=== PATIENT | male | born 1935 | race Caucasian/White ===

== ENCOUNTER 2017-07-05 17:02 | Inpatient (IN) ==
[2017-07-05] MEDS ORDERED: ACETAMINOPHEN 325 MG TABLET PO PRN (17:44)
[2017-07-05] MEDS ORDERED: ONDANSETRON 4 MG/2 ML VIAL IV PRN (17:44)
[2017-07-05] MEDS ORDERED: DOCUSATE SODIUM 100 MG CAPSULE PO PRN (17:44)
[2017-07-05] MEDS ORDERED: SODIUM CHLORIDE 0.9% 1,000 ML IV SCH (18:00)
--- NOTE | 2017-07-05 18:20 | EKG Report ---
Stationary ECG Study [facility] Test Date: 07/05/2017 6:17:49 PM Pat Name: EN DEL ROSARIO Department: Room: 423 Gender: M Literary Writer: : 1935 Requested by: Paramjit Lee Order Number: [id number] Reading MD: MIKE GONZALEZ Intervals [place] Rate: 80 P: 80 WV: 202 QRS: -8 QRSD: 110 T: 46 QT: 385 QTc: 420 Interpretive Statements SINUS RHYTHM WITH OCCASIONAL VENTRICULAR PREMATURE COMPLEXES Sinus arrhythmia Electronically Signed On 07-05-17 18:38:36 CDT by MIKE GONZALEZ [email or web address]
[2017-07-05 18:21] LABS: Basophils # 0.1 10*3/uL (0.0-0.2); Basophils % 0.8 % (0.0-0.8); Eosinophils # 0.3 10*3/uL (0.0-0.87); Eosinophils % 4.6 % (0.00-10.9); Hematocrit 36.2 VOL% (42.0-52.0); Hemoglobin 13.2 GM/DL (14.0-18.0); Immature Granulocytes % 0.3 %; Immature Granulocytes Absolute 0.02 #; Lymphocytes # 1.7 10*3/uL (1.4-4.0); Lymphocytes % 25.6 % (21.2-54.2); Mean Corpuscular HGB Conc 36.5 GM/DL (32-36); Mean Corpuscular Hemoglobin 33 PG (27-34); Mean Corpuscular Volume 89.4 FL (87-102); Mean Platelet Volume 9.9 FL (9.6-12.0); Monocytes # 0.5 10*3/uL (0.11-0.8); Monocytes % 7.9 % (1.7-12.7); Neutrophils # 3.9 10*3/uL (1.4-7.4); Neutrophils % 60.8 % (38.7-73.9); Platelet Count 162 T/CUMM (130-400); Red Blood Count 4.05 MC/CUMM (3.8-5.5); Red Cell Distribution Width 13.7 % (9.3-17.3); White Blood Count 6.5 T/CUMM (4-12)
[2017-07-05 18:39] LABS: Albumin 4.1 G/DL (3.4-5.0); Bilirubin,Total 0.7 MG/DL (0.2-1.0); Calcium 9.3 MG/DL (8.5-10.1); Magnesium 2.1 MG/DL (1.8-2.4); Osmolality,Calculated 283.1 MOS/KG (273-304); Potassium 3.6 MMOL/L (3.5-5.1); Total Protein 7.1 G/DL (6.4-8.3)
[2017-07-05] MEDS: ASPIRIN 325 MG TABLET PO SCH (19:46)
[2017-07-05] MEDS ORDERED: PYRIDOXINE PO PRN (20:24)
[2017-07-05] MEDS ORDERED: MELATONIN PO PRN (20:24)
--- NOTE | 2017-07-05 20:32 | Family Practice History&Phys ---
Assessment and Plan (1) Lacunar infarct, acute Status: Acute Assessment and plan: 07/05/2017 this seems to be at least subacute. He has had this issue for approximately a week and 1/2-2. We will watch him tonight and if all goes well let him go home tomorrow with close follow-up Current Visit: Yes (2) Stumbling gait Status: Acute Assessment and plan: 07/05/2017: We will recommend patient get a 4 point cane walker. And to not turn quickly. I have already talked with him about this. Current Visit: Yes History of Present Illness Chief complaint: Staggering gait History of present illness: Mr. Travis is a 82 year old male Who was evaluated by MRI due to staggering gait and leaning to the right. Apparently is been going on for at least a week and a half. At the MRI it was noted he had a lacunar infarct which was acute in deep white matter. At this time he is able to walk and does go straight except when he turns around he leans and bumps into the wall. He denies any other real problems such as vision issues or any difficulty in the holding items and denies any numbness at this time. Is very alert and oriented and he is still working building houses. At this time I am going to admit him, increase his aspirin to full aspirin daily and go ahead and get an echocardiogram and carotid duplex, will get neurologic checks tonight.. He does wish to go home in the morning once these are done. If he has unchanged, I would suspect this is more of a subacute infarct. We will have him follow-up with his primary doctor this coming Saturday. His is in the room and she does care for him and he her mutually. Home Medications Medication Instructions Recorded Confirmed Type Gabapentin 600 mg PO BID 04/25/15 07/05/17 History Aspirin [Ecotrin] 81 mg PO DAILY 05/03/16 07/05/17 History Carbidopa/Levodopa 25 - 100 mg PO DAILY PRN 05/03/16 07/05/17 History [Carbidopa-Levodopa 25-100 Tab] Melatonin/Pyridoxine [Melatonin 5 10 mg PO BEDTIME PRN 05/03/16 07/05/17 History mg Tablet] dilTIAZem HCl [Diltiazem ER] 120 mg PO DAILY 05/03/16 07/05/17 History Allergies Allergy/AdvReac Type Severity Reaction Status Date / Time No Known Allergies Allergy Verified 05/02/16 20:14 12 point system: reviewed and no additional remarkable complaints except as stated (That mentioned in the history and physical) Medical,Surgical,& Family Hx - Medical History Cardio: History of: Cardiac Dysrhythmia (history of PSVT), Valvular Heart Disease (mild aortic insufficiency), Cardiovascular Problems (mild nonischemic cardiomyopathy) Neurology: History of: Cerebrovascular Accident Rheumatology: History of;: Rheumatoid Arthritis Gastrointestinal: History of: GERD, GI Problems (gastroparesis) - Surgical History Abdominal Surgeries: Surgical HX of: Appendectomy Orthopedic Surgeries: Comment Only: Orthopedic Surgery (Right ankle surgery) - Family History Family History: Reports;: Family Diabetes, Family Heart Disease - Social History Smoking Status: Former smoker Frequency of Alcohol Use: None Type of Drug Use: None Exam - Constitutional Vitals: Period Temp Pulse Resp BP Sys/Bettencourt Pulse Ox Last 24 Hr 98.5 F 77-77 18-18 157/80 97-98 Exam: Generally well developed male. He is alert and oriented and answers all questions well, and albeit somewhat slow. Denies any changes in visions and I do not appreciate any diplopia. His pupils are equally reactive to light. He has no visual cuts. HEENT neck is supple trachea midline the uvula is midline as well and cough reflex is good. Cardiovascular rate is regular. There is a 1 out of 6 systolic ejection murmur , no gallop or rub Lungs clear bilaterally except for a few basal rales Abdomen soft nondistended patient has had good bowel and bladder function. Extremities no clubbing cyanosis or edema. Positive radial and dorsalis pedal pulses bilateral upper and lower extremities. Neurologic as mentioned above. He does lean to the right when he turns but is able to catch himself quite well. I do not appreciate any cranial nerve deficits or motor sensory deficits. No cerebellar findings are appreciated at this time Results - Labs CBC & BMP: 07/05/17 18:00 07/05/17 18:00 Quality Measures - Stroke Onset of Symptoms Date: 07/05/17 Symptom Onset Unknown: No
[2017-07-05] MEDS: GABAPENTIN 600 MG TABLET PO SCH (20:45)
[2017-07-05] MEDS ORDERED: APIXABAN 5 MG TABLET PO SCH (21:00)
[2017-07-06 04:15] LABS: Basophils # 0.1 10*3/uL (0.0-0.2); Basophils % 1.2 % (0.0-0.8); Eosinophils # 0.4 10*3/uL (0.0-0.87); Eosinophils % 7.5 % (0.00-10.9); Hematocrit 34.2 VOL% (42.0-52.0); Hemoglobin 12.2 GM/DL (14.0-18.0); Immature Granulocytes % 0.4 %; Immature Granulocytes Absolute 0.02 #; Lymphocytes # 1.4 10*3/uL (1.4-4.0); Lymphocytes % 27.8 % (21.2-54.2); Mean Corpuscular HGB Conc 35.7 GM/DL (32-36); Mean Corpuscular Hemoglobin 32 PG (27-34); Mean Corpuscular Volume 89.5 FL (87-102); Mean Platelet Volume 10.1 FL (9.6-12.0); Monocytes # 0.5 10*3/uL (0.11-0.8); Monocytes % 9.1 % (1.7-12.7); Neutrophils # 2.7 10*3/uL (1.4-7.4); Platelet Count 149 T/CUMM (130-400); Red Blood Count 3.82 MC/CUMM (3.8-5.5); Red Cell Distribution Width 13.4 % (9.3-17.3)
[2017-07-06 04:48] LABS: Risk Ratio 3.27; VLDL CHOLESTEROL 28.8 MG/DL
[2017-07-06] MEDS: ASPIRIN 325 MG TABLET PO SCH (08:27)
[2017-07-06] MEDS: GABAPENTIN 600 MG TABLET PO SCH (08:27)
--- NOTE | 2017-07-06 08:44 | Family Practice Progress Note ---
Family Practice - PN: Subj Interval history: Patient seen this morning. He is doing fine no acute changes. He does want to go home today, desperately. Will discharge him after a carotid duplex and echocardiogram were done and I will have him follow with Dr. Jaeger next week. I am going to keep him on high-dose aspirin daily Exam (Progress Note) - Constitutional Vitals: Period Temp Pulse Resp BP Sys/Bettencourt Pulse Ox Last 24 Hr 98.4 F-98.7 F 67-80 17-20 148-181/72-83 95-98 Exam: He is alert and oriented and answers all questions well, Denies any changes in visions His pupils are equally reactive to light. He has no visual cuts. HEENT neck is supple trachea midline the uvula is midline as well and cough reflex is good. Cardiovascular rate is regular. There is a 1 out of 6 systolic ejection murmur , no gallop or rub Lungs clear bilaterally except for a few basal rales Abdomen soft nondistended patient has had good bowel and bladder function. Extremities no clubbing cyanosis or edema. Neurologic . do not appreciate any cranial nerve deficits or motor sensory deficits. Results - Labs CBC & BMP: 07/06/17 03:06 07/05/17 18:00 Assessment and Plan (1) Lacunar infarct, acute Status: Acute Assessment and plan: 07/05/2017 this seems to be at least subacute. He has had this issue for approximately a week and 1/2-2. We will watch him tonight and if all goes well let him go home tomorrow with close follow-up Current Visit: Yes (2) Stumbling gait Status: Acute Assessment and plan: 07/05/2017: We will recommend patient get a 4 point cane walker. And to not turn quickly. I have already talked with him about this. Current Visit: Yes Quality Measures - Stroke Onset of Symptoms Date: 07/05/17 Symptom Onset Unknown: No
[2017-07-06] MEDS ORDERED: PANTOPRAZOLE 40 MG TABLET PO SCH (09:00)
[2017-07-06] MEDS ORDERED: DILTIAZEM CD 120 MG CAPSULE PO SCH (09:00)
[2017-07-06] MEDS ORDERED: ASPIRIN EC 325 MG TABLET PO SCH (09:00)
--- NOTE | 2017-07-06 09:59 | XRay Report ---
2 view chest. Indication: Shortness of breath. Comparison: May 03, 2016. The heart size is normal. There is left ventricular hypertrophy. There is uncoiling of the thoracic aorta, which often indicates chronic hypertension. The pulmonary vasculature is normal. The lung rivas are clear. The osseous structures are diffusely demineralized, and degenerative changes are present within the spinal column. Impression: No acute abnormality. PROCEDURE INTERPRETED AT [facility] DEPARTMENT OF RADIOLOGY Final Report Signed by: Dr. Desiree Murray
[2017-07-06 12:35] VITALS: BP 181/88
--- NOTE | 2017-07-06 12:50 | Discharge Summary ---
Hospital Course - Hospital Course Hospital Course: Patient came in to the hospital after having been seen in MRI and diagnosed with a lacunar infarct. He has not had any recent symptoms from this. He has had symptoms of unstable gait for about a week and a half and I suspect this was a subacute infarct. Nonetheless he is doing well today I did get an echocardiogram as well as a carotid duplex which have been done. I am going to have him follow-up with his primary doctor early next week. He is now on a full aspirin and having, again no other symptoms, or worsening neurologic deficits. He is very much desiring to leave the hospital, for home. I told him if he had any further issues or complications to go to the ER which he voiced agreement. Also told him to use a cane to steady his gait, especially if he has a leaning to the right issue which has been his problem in the recent past. Diagnosis - Discharge Diagnosis (1) Lacunar infarct, acute Status: Acute (2) Stumbling gait Status: Acute Specialty Discharge - Follow Up or Referrals Follow up with: Marcelino Jaeger MD [Primary Care Provider] - (Saturday07/08/2017 ) Discharge Plan - Discharge Data Disposition: Disch To Home/Self Care Condition at Discharge: Stable Discharge Diet: advance to your usual diet Activity: resume usual activities as tolerated Hygiene: no restrictions Driving: not until seen by doctor - Discharge Medications New Aspirin Tab 325 mg PO DAILY tablet Pantoprazole Tab [Protonix Tab] 40 mg PO DAILY #30 tablet Continue Gabapentin 600 mg PO BID Carbidopa/Levodopa [Carbidopa-Levodopa 25-100 Tab] 25 - 100 mg PO DAILY PRN PRN Reason: Leg Cramping dilTIAZem HCl [Diltiazem ER] 120 mg PO DAILY Melatonin/Pyridoxine [Melatonin 5 mg Tablet] 10 mg PO BEDTIME PRN PRN Reason: Sleep Discontinued Aspirin [Ecotrin] 81 mg PO DAILY - Follow Up or Referral Follow Up: Marcelino Jaeger MD [Primary Care Provider] - (Saturday07/08/2017 ) - Forms/Instructions Instructions: Ischemic Stroke (DC) Exam - Constitutional Vitals: Period Temp Pulse Resp BP Sys/Bettencourt Pulse Ox Last 24 Hr 97.7 F-98.8 F 67-80 17-20 148-181/72-88 93-98 Discharge Results Procedures and tests throughout hospitalization: Pending Orders 07/06/17 carotid duplex BI Routine Labs on day of discharge: Labs from last 24 hours 07/06/17 07/06/17 07/06/17 03:06 03:06 03:06 WBC 5.0 RBC 3.82 Hgb 12.2 L Hct 34.2 L MCV 89.5 MCH 32 MCHC 35.7 RDW 13.4 Plt Count 149 MPV 10.1 Neut % (Auto) 54.0 Lymph % (Auto) 27.8 [place] % (Auto) 9.1 Eos % (Auto) 7.5 Baso % (Auto) 1.2 H Neut # (Auto) 2.7 Lymph # (Auto) 1.4 [place] # (Auto) 0.5 Eos # (Auto) 0.4 Baso # (Auto) 0.1 Immature Gran % 0.4 Nucleated RBC % 0.0 Immature Gran # 0.02 Nucleated RBCs # 0.00 Immature Plt Fraction 0.0 Sodium Potassium Chloride Carbon Dioxide Anion Gap BUN Creatinine GFR Calculation BUN/Creatinine Ratio Glucose Calculated Osmolality Calcium Magnesium Total Bilirubin AST ALT Alkaline Phosphatase B-Natriuretic Peptide 182 H Total Protein Albumin Globulin Albumin/Globulin Ratio Triglycerides 144 Cholesterol 144 LDL Cholesterol 80.0 VLDL Cholesterol 28.8 HDL Cholesterol 44 Heart Disease Risk Ratio 3.27 07/05/17 07/05/17 18:00 18:00 WBC 6.5 RBC 4.05 Hgb 13.2 L Hct 36.2 L MCV 89.4 MCH 33 MCHC 36.5 H RDW 13.7 Plt Count 162 MPV 9.9 Neut % (Auto) 60.8 Lymph % (Auto) 25.6 [place] % (Auto) 7.9 Eos % (Auto) 4.6 Baso % (Auto) 0.8 Neut # (Auto) 3.9 Lymph # (Auto) 1.7 [place] # (Auto) 0.5 Eos # (Auto) 0.3 Baso # (Auto) 0.1 Immature Gran % 0.3 Nucleated RBC % 0.0 Immature Gran # 0.02 Nucleated RBCs # 0.00 Immature Plt Fraction 0.0 Sodium 142 Potassium 3.6 Chloride 108 H Carbon Dioxide 27 Anion Gap 10.6 BUN 19 H Creatinine 1.50 H GFR Calculation 51 BUN/Creatinine Ratio 12.00 Glucose 87 Calculated Osmolality 283.1 Calcium 9.3 Magnesium 2.1 Total Bilirubin 0.70 AST 21 ALT 25 Alkaline Phosphatase 79 B-Natriuretic Peptide Total Protein 7.1 Albumin 4.1 Globulin 3.0 Albumin/Globulin Ratio 1.3 Triglycerides Cholesterol LDL Cholesterol VLDL Cholesterol HDL Cholesterol Heart Disease Risk Ratio DS: Provider Date of admission: 07/05/17 17:16 Primary care physician: Marcelino Jaeger MD Attending physician on admission: Marcelino Jaeger MD Consults: 07/05/17 17:44 Consult to Case Mgmt/Social Srvs [CONS] Routine Reason for Case Mgmt/Social Srvs: Discharge Planning 07/05/17 17:47 Consult to Physician [CONS] Routine Comment: CVA Consulting Provider: Jermaine Hernandez Discharging clinician: Paramjit Lee DO
--- NOTE | 2017-07-06 13:31 | Ultrasound Report ---
Bilateral carotid Doppler. Grayscale, color-flow, and spectral analysis performed and interpreted. Indication: Left-sided lacunar infarct. Right-sided weakness. There are mild to moderate mixed at the sclerotic changes present within the right carotid bulb and proximal internal carotid artery. The right internal carotid artery peak systolic velocity is 53 cm/s, with an IC/CC ratio of 0.6. There are moderate mixed atherosclerotic changes seen within both the proximal left internal and external carotid artery, as well as the carotid bulb and distal common carotid artery. The left internal carotid artery peak systolic velocity is 90 cm/s with an IC/CC ratio of 1.0. There is antegrade flow within each vertebral artery. Impression: Using NASCET criteria, findings consistent with less than 50% stenosis bilaterally. Irregular plaque is also seen bilaterally, worse on the left. The Ultrasound images were captured and stored. PROCEDURE INTERPRETED AT [facility] DEPARTMENT OF RADIOLOGY Final Report Signed by: Dr. Desiree Murray
--- NOTE | 2017-07-07 09:02 | ECHO Report ---
Felix Travis Exam Date: 07/06/2017 11:20 Referring Physician: Technologist: dena Mclaughlin ARDMS, RVT Age: 82 Ht (in): 69 Wt (lb): 199 Gender: M Exam Location: [facility] Echo Indications: CVA, Lunar infarct, Stumbling gait BP: 159 / 74 HR: 73 Rhythm: Sinus Technical Quality: Very technically difficult study IMPRESSIONS Normal left ventricular cavity size. Mild left ventricular hypertrophy. Left ventricular ejection fraction is estimated at 50%. The right ventricle is normal in size and function. The right atrium is normal in size. The left atrium is normal in size. Morphologically normal mitral valve. Mild-moderate mitral valve regurgitation. Aortic valve sclerosis without stenosis. Moderate to severe aortic valve regurgitation. Morphologically normal tricuspid valve. Mild tricuspid valve regurgitation. Tricuspid regurgitation velocities suggest a PAP of 41 mmHg. Morphologically normal pulmonic valve. Mild pulmonary valve regurgitation. Normal pericardium without effusion. Normal ascending aorta dimension. MEASUREMENTS (Male / Female) Normal Values 2D ECHO LV Diastolic Diameter PLAX 5.0 cm 4.2 - 5.9 / 3.9 - 5.3 cm LV Systolic Diameter PLAX 3.6 cm LV Fractional Shortening PLAX 27.0 % IVS Diastolic Thickness 1.4 cm 0.6 - 1.0 / 0.6 - 0.9 cm LVPW Diastolic Thickness 1.1 cm 0.6 - 1.0 / 0.6 - 0.9 cm RV Internal Dim ED PLAX 3.3 cm Aortic Root Diameter 4.0 cm LA Systolic Diameter LX 2.8 cm 3.0 - 4.0 / 2.7 - 3.8 cm DOPPLER TR Peak Velocity 279.0 cm/s TR Peak Gradient 31.1 mmHg FINDINGS Left Ventricle Normal left ventricular cavity size. Mild left ventricular hypertrophy. Left ventricular ejection fraction is estimated at 50%. Right Ventricle The right ventricle is normal in size and function. Right Atrium The right atrium is normal in size. Left Atrium The left atrium is normal in size. Mitral Valve Morphologically normal mitral valve. Mild-moderate mitral valve regurgitation. Aortic Valve Aortic valve sclerosis without stenosis. Moderate to severe aortic valve regurgitation. Tricuspid Valve Morphologically normal tricuspid valve. Mild tricuspid valve regurgitation. Tricuspid regurgitation velocities suggest a PAP of 41 mmHg. Pulmonic Valve Morphologically normal pulmonic valve. Mild pulmonary valve regurgitation. Pericardium Normal pericardium without effusion. Aorta Normal ascending aorta dimension. Todd Alves MD (Electronically Signed) Final Date: 07 July 2017 09:00
== END 2017-07-06 13:40 | disposition home or self-care (01) | DRG 65 ==
LOC: N.4E → OBSVTOIN 17:16
PROVIDERS: ADMIT Internal Medicine; ATTEND Internal Medicine

== ENCOUNTER 2019-08-31 11:58 | Inpatient (IN) ==
[2019-08-31] MEDS ORDERED: ACETAMINOPHEN 325 MG TABLET PO PRN (13:20)
[2019-08-31] MEDS ORDERED: ONDANSETRON 4 MG/2 ML VIAL IV PRN (13:20)
[2019-08-31] MEDS ORDERED: ALBUTEROL/IPRATROPIUM 3 ML NEB RESP TX PRN (13:26)
[2019-08-31] MEDS: ALBUTEROL/IPRATROPIUM 3 ML NEB RESP TX SCH ×3 (14:12→23:59)
[2019-08-31] MEDS: OSELTAMIVIR 75 MG CAPSULE PO SCH ×2 (14:15→20:42)
[2019-08-31] MEDS: LEVOFLOXACIN INJ 500 MG in PREMIX 1 EACH IV SCH (14:15)
[2019-08-31] MEDS: SODIUM CHLORIDE 0.9% 1,000 ML IV SCH (14:18)
[2019-08-31] MEDS ORDERED: CARBIDOPA/LEVODOPA 25-100 MG TABLET PO PRN (15:58)
[2019-08-31 19:56] LABS: Apearance,Urine CLEAR (Clear); Bilirubin,Urine Negative (Negative); Blood, Urine Negative (Negative); Glucose,Urine (UA) Negative (Negative); Hyaline Casts,Urine 3 /LPF (0-3); Ketones,Urine Negative (Negative); Mucus,Urine Occasional /LPF (Occasional); Nitrite,Urine Negative (Negative); Protein,Urine 100 MG/DL; RBC,Urine <1 /HPF (0-4); Urine Color Yellow (Yellow); Urine Urobilinogen < 2.0 EU/DL (0.2-1.0); WBC,Urine 1 /HPF (0-6)
[2019-08-31] MEDS: DOCUSATE SODIUM 100 MG CAPSULE PO SCH (20:42)
[2019-08-31] MEDS: MELATONIN 3 MG TABLET PO SCH (20:42)
[2019-08-31] MEDS: APIXABAN 5 MG TABLET PO SCH (20:43)
[2019-08-31] MEDS ORDERED: ATORVASTATIN 80 MG TABLET PO SCH (21:00)
[2019-08-31] MEDS ORDERED: BENZONATATE 100 MG CAPSULE PO PRN (21:50)
[2019-08-31] MEDS: GABAPENTIN 600 MG TABLET PO SCH (22:41)
[2019-09-01] MEDS: SODIUM CHLORIDE 0.9% 1,000 ML IV SCH ×2 (02:50→17:01)
[2019-09-01] MEDS: ALBUTEROL/IPRATROPIUM 3 ML NEB RESP TX SCH ×5 (03:53→19:13)
[2019-09-01 04:52] LABS: Basophils % 0.1 % (0.0-0.8); Hematocrit 34.4 VOL% (42.0-52.0); Hemoglobin 11.8 GM/DL (14.0-18.0); Immature Granulocytes % 0.6 %; Immature Granulocytes Absolute 0.07 #; Lymphocytes # 0.9 10*3/uL (1.4-4.0); Lymphocytes % 7.4 % (21.2-54.2); Mean Corpuscular HGB Conc 34.3 GM/DL (32-36); Mean Corpuscular Volume 92.2 FL (87-102); Mean Platelet Volume 10.8 FL (9.6-12.0); Monocytes % 6.5 % (1.7-12.7); Neutrophils % 85.4 % (38.7-73.9); Platelet Count 165 T/CUMM (130-400); Red Blood Count 3.73 MC/CUMM (3.8-5.5); Red Cell Distribution Width 13.8 % (9.3-17.3); White Blood Count 11.9 T/CUMM (4-12)
[2019-09-01 05:22] LABS: Albumin 3.2 G/DL (3.4-5.0); Calcium 8.7 MG/DL (8.5-10.1); Osmolality,Calculated 291.4 MOS/KG (273-304); Total Protein 6.6 G/DL (6.4-8.3)
[2019-09-01] MEDS: GABAPENTIN 600 MG TABLET PO SCH ×4 (09:47→20:25)
[2019-09-01] MEDS: DOCUSATE SODIUM 100 MG CAPSULE PO SCH ×2 (09:47→20:26)
[2019-09-01] MEDS: PANTOPRAZOLE 40 MG TABLET PO SCH (09:48)
[2019-09-01] MEDS: METOPROLOL SUCCINATE XL 50 MG TABLET PO SCH (09:49)
[2019-09-01] MEDS: APIXABAN 5 MG TABLET PO SCH ×2 (09:49→20:26)
[2019-09-01] MEDS: OSELTAMIVIR 75 MG CAPSULE PO SCH ×2 (09:50→20:26)
[2019-09-01] MEDS: ESCITALOPRAM 10 MG TABLET PO SCH (09:50)
[2019-09-01] MEDS: LEVOFLOXACIN INJ 500 MG in PREMIX 1 EACH IV SCH (14:29)
[2019-09-01] MEDS: MELATONIN 3 MG TABLET PO SCH (20:26)
[2019-09-02] MEDS: ALBUTEROL/IPRATROPIUM 3 ML NEB RESP TX SCH ×7 (00:14→23:33)
[2019-09-02 06:22] LABS: Basophils % 0.4 % (0.0-0.8); Eosinophils % 0.4 % (0.00-10.9); Hematocrit 33.5 VOL% (42.0-52.0); Hemoglobin 11.2 GM/DL (14.0-18.0); Immature Granulocytes Absolute 0.07 #; Lymphocytes % 13.6 % (21.2-54.2); Mean Corpuscular HGB Conc 33.4 GM/DL (32-36); Mean Corpuscular Volume 94.6 FL (87-102); Mean Platelet Volume 10.6 FL (9.6-12.0); Monocytes % 12.2 % (1.7-12.7); Neutrophils % 72.4 % (38.7-73.9); Platelet Count 143 T/CUMM (130-400); Red Blood Count 3.54 MC/CUMM (3.8-5.5); Red Cell Distribution Width 14.1 % (9.3-17.3)
[2019-09-02 06:53] LABS: Calcium 8.6 MG/DL (8.5-10.1)
[2019-09-02 07:09] LABS: Albumin 2.8 G/DL (3.4-5.0); Bilirubin,Direct 0.13 MG/DL (0.0-0.20); Bilirubin,Indirect 0.3 MG/DL (0.0-1.0); Bilirubin,Total 0.4 MG/DL (0.2-1.0); Total Protein 5.9 G/DL (6.4-8.3)
[2019-09-02] MEDS: ESCITALOPRAM 10 MG TABLET PO SCH (09:37)
[2019-09-02] MEDS: OSELTAMIVIR 75 MG CAPSULE PO SCH ×2 (09:37→21:47)
[2019-09-02] MEDS: PANTOPRAZOLE 40 MG TABLET PO SCH (09:37)
[2019-09-02] MEDS: DOCUSATE SODIUM 100 MG CAPSULE PO SCH ×2 (09:37→21:47)
[2019-09-02] MEDS: METOPROLOL SUCCINATE XL 50 MG TABLET PO SCH (09:37)
[2019-09-02] MEDS: APIXABAN 5 MG TABLET PO SCH ×2 (09:37→21:47)
[2019-09-02] MEDS: GABAPENTIN 600 MG TABLET PO SCH ×6 (09:37→21:53)
[2019-09-02] MEDS: LEVOFLOXACIN INJ 500 MG in PREMIX 1 EACH IV SCH (13:58)
[2019-09-02] MEDS: SODIUM CHLORIDE 0.9% 1,000 ML IV SCH (17:40)
[2019-09-02] MEDS ORDERED: DONEPEZIL 5 MG TABLET PO SCH (21:00)
[2019-09-02] MEDS ORDERED: DILTIAZEM CD 240 MG CAPSULE PO SCH (21:00)
[2019-09-02] MEDS ORDERED: TAMSULOSIN 0.4 MG CAPSULE PO SCH (21:00)
[2019-09-02] MEDS: MELATONIN 3 MG TABLET PO SCH (21:47)
[2019-09-02] MEDS: MEMANTINE 10 MG TABLET PO SCH (21:47)
[2019-09-03] MEDS: ALBUTEROL/IPRATROPIUM 3 ML NEB RESP TX SCH ×2 (03:16→07:11)
[2019-09-03 06:09] LABS: Basophils # 0.1 10*3/uL (0.0-0.2); Basophils % 0.7 % (0.0-0.8); Eosinophils # 0.3 10*3/uL (0.0-0.87); Eosinophils % 3.6 % (0.00-10.9); Hematocrit 32.2 VOL% (42.0-52.0); Hemoglobin 10.8 GM/DL (14.0-18.0); Immature Granulocytes % 1.6 %; Immature Granulocytes Absolute 0.11 #; Lymphocytes # 1.2 10*3/uL (1.4-4.0); Lymphocytes % 17.2 % (21.2-54.2); Mean Corpuscular HGB Conc 33.5 GM/DL (32-36); Mean Corpuscular Volume 94.2 FL (87-102); Mean Platelet Volume 10.6 FL (9.6-12.0); Monocytes % 12.7 % (1.7-12.7); Neutrophils % 64.2 % (38.7-73.9); Platelet Count 140 T/CUMM (130-400); Red Blood Count 3.42 MC/CUMM (3.8-5.5); Red Cell Distribution Width 14.3 % (9.3-17.3); White Blood Count 6.9 T/CUMM (4-12)
[2019-09-03 06:35] LABS: Calcium 8.6 MG/DL (8.5-10.1); Osmolality,Calculated 293.7 MOS/KG (273-304)
[2019-09-03] MEDS ORDERED: ASPIRIN EC 81 MG TABLET PO SCH (09:00)
[2019-09-03] MEDS: SODIUM CHLORIDE 0.9% 1,000 ML IV SCH (09:28)
[2019-09-03] MEDS: METOPROLOL SUCCINATE XL 50 MG TABLET PO SCH (09:29)
[2019-09-03] MEDS: GABAPENTIN 600 MG TABLET PO SCH ×2 (09:29)
[2019-09-03] MEDS: PANTOPRAZOLE 40 MG TABLET PO SCH (09:29)
[2019-09-03] MEDS: APIXABAN 5 MG TABLET PO SCH (09:29)
[2019-09-03] MEDS: DOCUSATE SODIUM 100 MG CAPSULE PO SCH (09:29)
[2019-09-03] MEDS: OSELTAMIVIR 75 MG CAPSULE PO SCH (09:29)
[2019-09-03] MEDS: ESCITALOPRAM 10 MG TABLET PO SCH (09:29)
[2019-09-03] MEDS: MEMANTINE 10 MG TABLET PO SCH (09:33)
[2019-09-03 10:20] VITALS: BP 136/83
== END 2019-09-03 10:59 | disposition home or self-care (01) | DRG 194 ==
LOC: N.5E 12:29
PROVIDERS: ADMIT Internal Medicine; ATTEND Internal Medicine

== ENCOUNTER 2020-08-31 16:35 | Inpatient (IN) ==
[2020-08-31] MEDS ORDERED: ACETAMINOPHEN 500 MG TABLET PO STA (16:51)
[2020-08-31 18:15] LABS: Basophils % 0.3 % (0.0-0.8); Eosinophils % 0.5 % (0.00-10.9); Hematocrit 35.3 VOL% (42.0-52.0); Hemoglobin 12.3 GM/DL (14.0-18.0); Immature Granulocytes % 0.5 %; Immature Granulocytes Absolute 0.03 #; Lymphocytes # 1.3 10*3/uL (1.4-4.0); Lymphocytes % 20.7 % (21.2-54.2); Mean Corpuscular HGB Conc 34.8 GM/DL (32-36); Mean Corpuscular Volume 93.6 FL (87-102); Mean Platelet Volume 9.8 FL (9.6-12.0); Monocytes % 18.5 % (1.7-12.7); Neutrophils % 59.5 % (38.7-73.9); Platelet Count 110 T/CUMM (130-400); Red Blood Count 3.77 MC/CUMM (3.8-5.5); Red Cell Distribution Width 13.4 % (9.3-17.3); White Blood Count 6.4 T/CUMM (4-12)
[2020-08-31 18:27] LABS: INR 1.2; PT Patient Result 12.3 SECS (9.8-11.9)
[2020-08-31 18:51] LABS: Lymphocytes 15 % (20-55); Segmented Neutrophils 65 % (50-85); Total Cells Counted 100
[2020-08-31 18:53] LABS: Albumin 3.3 G/DL (3.4-5.0); Bilirubin,Total 0.7 MG/DL (0.2-1.0); Calcium 8.7 MG/DL (8.5-10.1); Ferritin 66.6 ng/ml (26-388); Osmolality,Calculated 279.7 MOS/KG (273-304); Platelet Estimate Adequate; Potassium 3.9 MMOL/L (3.5-5.1); Total Protein 6.7 G/DL (6.4-8.3)
[2020-08-31] MEDS ORDERED: ACETAMINOPHEN 325 MG TABLET PO PRN (18:54)
[2020-08-31] MEDS ORDERED: ONDANSETRON 4 MG/2 ML VIAL IV PRN (18:54)
[2020-08-31] MEDS ORDERED: ASPIRIN CHEW 81 MG TABLET PO STA (19:14)
[2020-08-31] MEDS: AZITHROMYCIN INJ 500 MG in SODIUM CHLORIDE 0.9% 250 ML IV SCH (19:24)
[2020-08-31 19:25] LABS: Bilirubin,Urine Negative (Negative); Blood, Urine Small mg/dL (Negative); Glucose,Urine (UA) Negative (Negative); Ketones,Urine Negative (Negative); Mucus,Urine Occasional /LPF (Occasional); Nitrite,Urine Negative (Negative); Protein,Urine 30 MG/DL; RBC,Urine 2 /HPF (0-4); Squamous Epithelial Cell,Urine Occasional /HPF (0-10); Urine Appearance CLEAR (Clear); Urine Color Yellow (Yellow); Urine Specific Gravity 1.018 (1.001-1.035); Urine Urobilinogen < 2.0 EU/DL (0.2-1.0); WBC,Urine <1 /HPF (0-6)
[2020-08-31] MEDS ORDERED: APIXABAN 5 MG TABLET PO SCH (21:00)
[2020-08-31] MEDS: DILTIAZEM CD 240 MG CAPSULE PO SCH (21:10)
[2020-08-31] MEDS: DONEPEZIL 10 MG TABLET PO SCH (21:10)
[2020-08-31] MEDS: ATORVASTATIN 80 MG TABLET PO SCH (21:10)
[2020-08-31] MEDS: METOPROLOL TARTRATE 25 MG TABLET PO SCH (21:10)
[2020-09-01 04:22] LABS: Basophils % 0.4 % (0.0-0.8); Eosinophils % 0.9 % (0.00-10.9); Hematocrit 36.7 VOL% (42.0-52.0); Hemoglobin 12.5 GM/DL (14.0-18.0); Immature Granulocytes % 0.4 %; Immature Granulocytes Absolute 0.02 #; Lymphocytes # 1.5 10*3/uL (1.4-4.0); Lymphocytes % 33.2 % (21.2-54.2); Mean Corpuscular HGB Conc 34.1 GM/DL (32-36); Mean Corpuscular Volume 93.6 FL (87-102); Mean Platelet Volume 10.3 FL (9.6-12.0); Monocytes % 18.6 % (1.7-12.7); Neutrophils % 46.5 % (38.7-73.9); Platelet Count 94 T/CUMM (130-400); Red Blood Count 3.92 MC/CUMM (3.8-5.5); Red Cell Distribution Width 13.4 % (9.3-17.3); White Blood Count 4.6 T/CUMM (4-12)
[2020-09-01 04:31] LABS: Bilirubin,Total 0.9 MG/DL (0.2-1.0); Calcium 8.5 MG/DL (8.5-10.1); Osmolality,Calculated 279.5 MOS/KG (273-304); Potassium 3.9 MMOL/L (3.5-5.1); Total Protein 6.3 G/DL (6.4-8.3)
[2020-09-01 05:03] LABS: Band Neutrophils 1 % (0-10); Eosinophils 2 % (0-10); Hypochromasia 1+; Lymphocytes 31 % (20-55); Microcytosis 1+; Segmented Neutrophils 55 % (50-85); Total Cells Counted 100
[2020-09-01 05:04] LABS: Atypical Lymphocytes Few; Ovalocytes Few; Platelet Estimate Decreased
[2020-09-01] MEDS ORDERED: LORATADINE 10 MG TABLET PO PRN (08:46)
[2020-09-01] MEDS: BENZONATATE 100 MG CAPSULE PO SCH ×3 (10:37→20:49)
[2020-09-01] MEDS: PANTOPRAZOLE 40 MG VIAL IV SCH (10:37)
[2020-09-01] MEDS: ASPIRIN EC 81 MG TABLET PO SCH (10:37)
[2020-09-01] MEDS: FAMOTIDINE 20 MG TABLET PO SCH ×2 (10:37→20:49)
[2020-09-01] MEDS: APIXABAN 2.5 MG TABLET PO SCH ×2 (10:37→20:49)
[2020-09-01] MEDS: DILTIAZEM CD 240 MG CAPSULE PO SCH ×2 (10:37→20:49)
[2020-09-01] MEDS: AZITHROMYCIN INJ 500 MG in SODIUM CHLORIDE 0.9% 250 ML IV SCH (18:38)
[2020-09-01] MEDS: ATORVASTATIN 80 MG TABLET PO SCH (20:49)
[2020-09-01] MEDS: METOPROLOL TARTRATE 25 MG TABLET PO SCH (20:49)
[2020-09-01] MEDS: DONEPEZIL 10 MG TABLET PO SCH (20:49)
[2020-09-02 06:23] LABS: Basophils % 0.3 % (0.0-0.8); Eosinophils # 0.1 10*3/uL (0.0-0.87); Eosinophils % 0.8 % (0.00-10.9); Hematocrit 38.9 VOL% (42.0-52.0); Hemoglobin 13.2 GM/DL (14.0-18.0); Immature Granulocytes % 0.5 %; Immature Granulocytes Absolute 0.03 #; Lymphocytes # 1.5 10*3/uL (1.4-4.0); Lymphocytes % 23.3 % (21.2-54.2); Mean Corpuscular HGB Conc 33.9 GM/DL (32-36); Mean Corpuscular Volume 93.7 FL (87-102); Mean Platelet Volume 10.3 FL (9.6-12.0); Neutrophils % 64.1 % (38.7-73.9); Platelet Count 93 T/CUMM (130-400); Red Blood Count 4.15 MC/CUMM (3.8-5.5); Red Cell Distribution Width 13.1 % (9.3-17.3); White Blood Count 6.6 T/CUMM (4-12)
[2020-09-02 06:36] LABS: Calcium 8.5 MG/DL (8.5-10.1); Osmolality,Calculated 275.8 MOS/KG (273-304); Potassium 3.8 MMOL/L (3.5-5.1)
[2020-09-02 07:24] LABS: Anisocytosis Slight; Platelet Estimate Decreased
[2020-09-02 07:25] LABS: Ovalocytes Few
[2020-09-02] MEDS: APIXABAN 2.5 MG TABLET PO SCH ×2 (08:55→20:39)
[2020-09-02] MEDS: DILTIAZEM CD 240 MG CAPSULE PO SCH ×2 (08:55→20:38)
[2020-09-02] MEDS: ASPIRIN EC 81 MG TABLET PO SCH (08:55)
[2020-09-02] MEDS: FAMOTIDINE 20 MG TABLET PO SCH ×2 (08:56→20:39)
[2020-09-02] MEDS: MEMANTINE 10 MG TABLET PO SCH ×2 (08:56→20:38)
[2020-09-02] MEDS: BENZONATATE 100 MG CAPSULE PO SCH ×3 (08:56→20:38)
[2020-09-02] MEDS: PANTOPRAZOLE 40 MG VIAL IV SCH (08:56)
[2020-09-02] MEDS: PIPERACILLIN/TAZOBACTAM 3,375 MG in SODIUM CHLORIDE 0.9% 100 ML IV SCH ×3 (10:17→17:12)
[2020-09-02] MEDS: DONEPEZIL 10 MG TABLET PO SCH (20:37)
[2020-09-02] MEDS: ATORVASTATIN 80 MG TABLET PO SCH (20:38)
[2020-09-02] MEDS: METOPROLOL TARTRATE 25 MG TABLET PO SCH (20:38)
[2020-09-02] MEDS: TAMSULOSIN 0.4 MG CAPSULE PO SCH (20:39)
[2020-09-02] MEDS: AZITHROMYCIN INJ 500 MG in SODIUM CHLORIDE 0.9% 250 ML IV SCH (20:42)
[2020-09-03] MEDS: PIPERACILLIN/TAZOBACTAM 3,375 MG in SODIUM CHLORIDE 0.9% 100 ML IV SCH ×3 (01:40→17:00)
[2020-09-03 06:54] LABS: Calcium 8.8 MG/DL (8.5-10.1); Osmolality,Calculated 269.4 MOS/KG (273-304); Potassium 4.5 MMOL/L (3.5-5.1)
[2020-09-03 08:22] LABS: Basophils % 0.4 % (0.0-0.8); Eosinophils % 0.2 % (0.00-10.9); Hematocrit 35.8 VOL% (42.0-52.0); Hemoglobin 12.7 GM/DL (14.0-18.0); Immature Granulocytes % 0.4 %; Immature Granulocytes Absolute 0.02 #; Lymphocytes # 1.1 10*3/uL (1.4-4.0); Lymphocytes % 22.4 % (21.2-54.2); Mean Corpuscular HGB Conc 35.5 GM/DL (32-36); Mean Corpuscular Volume 91.6 FL (87-102); Mean Platelet Volume 10.9 FL (9.6-12.0); Monocytes % 11.3 % (1.7-12.7); Neutrophils % 65.3 % (38.7-73.9); Red Blood Count 3.91 MC/CUMM (3.8-5.5)
[2020-09-03 08:23] LABS: Platelet Count 89 T/CUMM (130-400)
[2020-09-03] MEDS: ASPIRIN EC 81 MG TABLET PO SCH (08:35)
[2020-09-03] MEDS: APIXABAN 2.5 MG TABLET PO SCH ×2 (08:37→20:27)
[2020-09-03] MEDS: FAMOTIDINE 20 MG TABLET PO SCH ×2 (08:37→20:26)
[2020-09-03] MEDS: BENZONATATE 100 MG CAPSULE PO SCH ×3 (08:37→20:27)
[2020-09-03] MEDS: PANTOPRAZOLE 40 MG VIAL IV SCH (08:37)
[2020-09-03] MEDS: MEMANTINE 10 MG TABLET PO SCH ×2 (08:37→20:27)
[2020-09-03] MEDS: ESCITALOPRAM 10 MG TABLET PO SCH (08:37)
[2020-09-03 08:50] LABS: Hypochromasia 1+; Microcytosis 1+; Ovalocytes Few; Platelet Estimate Decreased
[2020-09-03] MEDS: DILTIAZEM CD 240 MG CAPSULE PO SCH ×2 (09:57→20:26)
[2020-09-03] MEDS: DONEPEZIL 10 MG TABLET PO SCH (20:27)
[2020-09-03] MEDS: METOPROLOL TARTRATE 25 MG TABLET PO SCH (20:27)
[2020-09-03] MEDS: TAMSULOSIN 0.4 MG CAPSULE PO SCH (20:27)
[2020-09-03] MEDS: ATORVASTATIN 80 MG TABLET PO SCH (20:27)
[2020-09-03] MEDS: AZITHROMYCIN INJ 500 MG in SODIUM CHLORIDE 0.9% 250 ML IV SCH (20:28)
[2020-09-04] MEDS: PIPERACILLIN/TAZOBACTAM 3,375 MG in SODIUM CHLORIDE 0.9% 100 ML IV SCH ×3 (02:19→16:33)
[2020-09-04 06:09] LABS: Basophils % 0.2 % (0.0-0.8); Eosinophils % 0.2 % (0.00-10.9); Hematocrit 38.3 VOL% (42.0-52.0); Hemoglobin 13.6 GM/DL (14.0-18.0); Immature Granulocytes % 0.2 %; Immature Granulocytes Absolute 0.01 #; Lymphocytes % 21.6 % (21.2-54.2); Mean Corpuscular HGB Conc 35.5 GM/DL (32-36); Mean Corpuscular Volume 91.6 FL (87-102); Mean Platelet Volume 10.8 FL (9.6-12.0); Monocytes % 10.9 % (1.7-12.7); Neutrophils % 66.9 % (38.7-73.9); Red Blood Count 4.18 MC/CUMM (3.8-5.5); Red Cell Distribution Width 12.9 % (9.3-17.3); White Blood Count 4.4 T/CUMM (4-12)
[2020-09-04 06:11] LABS: Platelet Count 74 T/CUMM (130-400)
[2020-09-04 06:40] LABS: Calcium 8.5 MG/DL (8.5-10.1); Osmolality,Calculated 275.8 MOS/KG (273-304); Potassium 3.9 MMOL/L (3.5-5.1)
[2020-09-04 06:54] LABS: Hypochromasia 1+; Microcytosis 1+; Ovalocytes Few
[2020-09-04 06:55] LABS: Acanthocytes Few; Platelet Estimate Decreased
[2020-09-04] MEDS: DILTIAZEM CD 240 MG CAPSULE PO SCH ×2 (08:19→21:26)
[2020-09-04] MEDS: ASPIRIN EC 81 MG TABLET PO SCH (08:19)
[2020-09-04] MEDS: ESCITALOPRAM 10 MG TABLET PO SCH (08:20)
[2020-09-04] MEDS: PANTOPRAZOLE 40 MG VIAL IV SCH (08:20)
[2020-09-04] MEDS: APIXABAN 2.5 MG TABLET PO SCH ×2 (08:20→21:27)
[2020-09-04] MEDS: MEMANTINE 10 MG TABLET PO SCH ×2 (08:20→21:27)
[2020-09-04] MEDS: FAMOTIDINE 20 MG TABLET PO SCH ×2 (08:20→21:27)
[2020-09-04] MEDS: BENZONATATE 100 MG CAPSULE PO SCH ×3 (08:21→21:27)
[2020-09-04] MEDS: METOPROLOL TARTRATE 25 MG TABLET PO SCH (21:27)
[2020-09-04] MEDS: ATORVASTATIN 80 MG TABLET PO SCH (21:27)
[2020-09-04] MEDS: DONEPEZIL 10 MG TABLET PO SCH (21:27)
[2020-09-04] MEDS: AZITHROMYCIN INJ 500 MG in SODIUM CHLORIDE 0.9% 250 ML IV SCH (21:27)
[2020-09-04] MEDS: TAMSULOSIN 0.4 MG CAPSULE PO SCH (21:27)
[2020-09-05] MEDS: PIPERACILLIN/TAZOBACTAM 3,375 MG in SODIUM CHLORIDE 0.9% 100 ML IV SCH ×3 (02:10→17:18)
[2020-09-05] MEDS: PANTOPRAZOLE 40 MG VIAL IV SCH (09:35)
[2020-09-05] MEDS: FAMOTIDINE 20 MG TABLET PO SCH ×2 (09:35→21:35)
[2020-09-05] MEDS: BENZONATATE 100 MG CAPSULE PO SCH ×3 (09:35→21:35)
[2020-09-05] MEDS: APIXABAN 2.5 MG TABLET PO SCH ×2 (09:35→21:35)
[2020-09-05] MEDS: ASPIRIN EC 81 MG TABLET PO SCH (09:35)
[2020-09-05] MEDS: MEMANTINE 10 MG TABLET PO SCH ×2 (09:35→21:35)
[2020-09-05] MEDS: ESCITALOPRAM 10 MG TABLET PO SCH (09:35)
[2020-09-05] MEDS: DILTIAZEM CD 240 MG CAPSULE PO SCH ×2 (14:02→21:35)
[2020-09-05] MEDS: AZITHROMYCIN INJ 500 MG in SODIUM CHLORIDE 0.9% 250 ML IV SCH (20:35)
[2020-09-05] MEDS: TAMSULOSIN 0.4 MG CAPSULE PO SCH (21:35)
[2020-09-05] MEDS: ATORVASTATIN 80 MG TABLET PO SCH (21:35)
[2020-09-05] MEDS: METOPROLOL TARTRATE 25 MG TABLET PO SCH (21:35)
[2020-09-05] MEDS: DONEPEZIL 10 MG TABLET PO SCH (21:35)
[2020-09-06] MEDS: PIPERACILLIN/TAZOBACTAM 3,375 MG in SODIUM CHLORIDE 0.9% 100 ML IV SCH ×3 (01:25→16:45)
[2020-09-06 06:42] LABS: Basophils % 0.4 % (0.0-0.8); Hematocrit 38.8 VOL% (42.0-52.0); Hemoglobin 13.8 GM/DL (14.0-18.0); Immature Granulocytes % 0.4 %; Immature Granulocytes Absolute 0.02 #; Lymphocytes # 1.2 10*3/uL (1.4-4.0); Lymphocytes % 24.8 % (21.2-54.2); Mean Corpuscular HGB Conc 35.6 GM/DL (32-36); Mean Corpuscular Volume 89.8 FL (87-102); Mean Platelet Volume 10.5 FL (9.6-12.0); Monocytes % 8.5 % (1.7-12.7); Neutrophils % 65.9 % (38.7-73.9); Red Blood Count 4.32 MC/CUMM (3.8-5.5); Red Cell Distribution Width 12.8 % (9.3-17.3); White Blood Count 4.8 T/CUMM (4-12)
[2020-09-06 06:43] LABS: Platelet Count 74 T/CUMM (130-400)
[2020-09-06 06:51] LABS: Calcium 8.6 MG/DL (8.5-10.1); Osmolality,Calculated 278.7 MOS/KG (273-304); Potassium 3.9 MMOL/L (3.5-5.1)
[2020-09-06 07:07] LABS: Lymphocytes 21 % (20-55); Platelet Estimate Decreased; Segmented Neutrophils 70 % (50-85); Total Cells Counted 100
[2020-09-06] MEDS: PANTOPRAZOLE 40 MG VIAL IV SCH (09:25)
[2020-09-06] MEDS: ASPIRIN EC 81 MG TABLET PO SCH (09:25)
[2020-09-06] MEDS: DILTIAZEM CD 240 MG CAPSULE PO SCH ×2 (09:25→22:10)
[2020-09-06] MEDS: FAMOTIDINE 20 MG TABLET PO SCH ×2 (09:25→22:10)
[2020-09-06] MEDS: MEGESTROL 40 MG TABLET PO SCH ×2 (09:25→22:10)
[2020-09-06] MEDS: APIXABAN 2.5 MG TABLET PO SCH ×2 (09:25→22:10)
[2020-09-06] MEDS: ESCITALOPRAM 10 MG TABLET PO SCH (09:25)
[2020-09-06] MEDS: MEMANTINE 10 MG TABLET PO SCH ×2 (09:25→22:10)
[2020-09-06] MEDS: BENZONATATE 100 MG CAPSULE PO SCH ×3 (09:25→22:10)
[2020-09-06] MEDS: TAMSULOSIN 0.4 MG CAPSULE PO SCH (22:10)
[2020-09-06] MEDS: ATORVASTATIN 80 MG TABLET PO SCH (22:10)
[2020-09-06] MEDS: DONEPEZIL 10 MG TABLET PO SCH (22:10)
[2020-09-06] MEDS: AZITHROMYCIN INJ 500 MG in SODIUM CHLORIDE 0.9% 250 ML IV SCH (22:10)
[2020-09-06] MEDS: METOPROLOL TARTRATE 25 MG TABLET PO SCH (22:10)
[2020-09-07] MEDS: PIPERACILLIN/TAZOBACTAM 3,375 MG in SODIUM CHLORIDE 0.9% 100 ML IV SCH ×3 (01:05→16:31)
[2020-09-07 06:43] LABS: Calcium 8.3 MG/DL (8.5-10.1); Osmolality,Calculated 284.3 MOS/KG (273-304); Potassium 3.8 MMOL/L (3.5-5.1)
[2020-09-07 06:45] LABS: Basophils % 0.2 % (0.0-0.8); Eosinophils % 0.2 % (0.00-10.9); Hematocrit 35.7 VOL% (42.0-52.0); Hemoglobin 12.9 GM/DL (14.0-18.0); Immature Granulocytes % 0.6 %; Immature Granulocytes Absolute 0.03 #; Lymphocytes # 1.1 10*3/uL (1.4-4.0); Lymphocytes % 23.4 % (21.2-54.2); Mean Corpuscular HGB Conc 36.1 GM/DL (32-36); Mean Corpuscular Volume 88.4 FL (87-102); Mean Platelet Volume 11.1 FL (9.6-12.0); Monocytes % 8.3 % (1.7-12.7); Neutrophils % 67.3 % (38.7-73.9); Red Blood Count 4.04 MC/CUMM (3.8-5.5); Red Cell Distribution Width 12.9 % (9.3-17.3); White Blood Count 4.8 T/CUMM (4-12)
[2020-09-07 06:46] LABS: Platelet Count 83 T/CUMM (130-400)
[2020-09-07 07:11] LABS: Hypochromasia 1+; Lymphocytes 19 % (20-55); Microcytosis 1+; Ovalocytes Slight; Platelet Estimate Decreased; Segmented Neutrophils 74 % (50-85); Total Cells Counted 100
[2020-09-07] MEDS: ASPIRIN EC 81 MG TABLET PO SCH (08:34)
[2020-09-07] MEDS: DILTIAZEM CD 240 MG CAPSULE PO SCH ×2 (08:34→21:04)
[2020-09-07] MEDS: BENZONATATE 100 MG CAPSULE PO SCH ×3 (08:35→21:04)
[2020-09-07] MEDS: MEGESTROL 40 MG TABLET PO SCH ×2 (08:35→21:06)
[2020-09-07] MEDS: MEMANTINE 10 MG TABLET PO SCH ×2 (08:35→21:04)
[2020-09-07] MEDS: FAMOTIDINE 20 MG TABLET PO SCH ×2 (08:35→21:04)
[2020-09-07] MEDS: APIXABAN 2.5 MG TABLET PO SCH ×2 (08:35→21:05)
[2020-09-07] MEDS: PANTOPRAZOLE 40 MG VIAL IV SCH (08:35)
[2020-09-07] MEDS: ESCITALOPRAM 10 MG TABLET PO SCH (08:35)
[2020-09-07] MEDS: AZITHROMYCIN INJ 500 MG in SODIUM CHLORIDE 0.9% 250 ML IV SCH (21:04)
[2020-09-07] MEDS: METOPROLOL TARTRATE 25 MG TABLET PO SCH (21:04)
[2020-09-07] MEDS: TAMSULOSIN 0.4 MG CAPSULE PO SCH (21:04)
[2020-09-07] MEDS: DONEPEZIL 10 MG TABLET PO SCH (21:04)
[2020-09-07] MEDS: ATORVASTATIN 80 MG TABLET PO SCH (21:05)
[2020-09-07] MEDS: MENTHOL/ZINC OXIDE OINT 71 GM JAR TOP PRN (21:06)
[2020-09-08] MEDS: PIPERACILLIN/TAZOBACTAM 3,375 MG in SODIUM CHLORIDE 0.9% 100 ML IV SCH ×3 (02:12→16:45)
[2020-09-08 06:53] LABS: Basophils % 0.4 % (0.0-0.8); Hematocrit 35.8 VOL% (42.0-52.0); Hemoglobin 12.9 GM/DL (14.0-18.0); Immature Granulocytes % 0.5 %; Immature Granulocytes Absolute 0.03 #; Lymphocytes % 17.5 % (21.2-54.2); Mean Corpuscular Volume 89.1 FL (87-102); Mean Platelet Volume 10.9 FL (9.6-12.0); Monocytes % 5.4 % (1.7-12.7); Neutrophils % 76.2 % (38.7-73.9); Red Blood Count 4.02 MC/CUMM (3.8-5.5); White Blood Count 5.7 T/CUMM (4-12)
[2020-09-08 06:56] LABS: Platelet Count 86 T/CUMM (130-400)
[2020-09-08 07:10] LABS: Calcium 8.5 MG/DL (8.5-10.1); Osmolality,Calculated 280.5 MOS/KG (273-304); Potassium 3.7 MMOL/L (3.5-5.1)
[2020-09-08 07:20] LABS: Eosinophils 1 % (0-10); Hypochromasia 1+; Lymphocytes 26 % (20-55); Microcytosis 1+; Ovalocytes Slight; Platelet Estimate Decreased; Segmented Neutrophils 69 % (50-85); Total Cells Counted 100
[2020-09-08] MEDS: MEMANTINE 10 MG TABLET PO SCH ×2 (09:56→21:38)
[2020-09-08] MEDS: ASPIRIN EC 81 MG TABLET PO SCH (09:56)
[2020-09-08] MEDS: FAMOTIDINE 20 MG TABLET PO SCH ×2 (09:56→21:38)
[2020-09-08] MEDS: ESCITALOPRAM 10 MG TABLET PO SCH (09:56)
[2020-09-08] MEDS: MEGESTROL 40 MG TABLET PO SCH ×2 (09:56→21:38)
[2020-09-08] MEDS: DILTIAZEM CD 240 MG CAPSULE PO SCH ×2 (09:56→21:38)
[2020-09-08] MEDS: APIXABAN 2.5 MG TABLET PO SCH ×2 (09:56→21:38)
[2020-09-08] MEDS: PANTOPRAZOLE 40 MG VIAL IV SCH (09:56)
[2020-09-08] MEDS: BENZONATATE 100 MG CAPSULE PO SCH ×3 (09:57→21:38)
[2020-09-08] MEDS: DESITIN 4OZ/NYSTATIN 15 GRAM MIXTURE PASTE TOP SCH ×2 (09:57→21:50)
[2020-09-08] MEDS: DEXTROSE 5% NACL 0.9% 1,000 ML IV SCH (14:24)
[2020-09-08] MEDS: METOPROLOL TARTRATE 25 MG TABLET PO SCH (21:38)
[2020-09-08] MEDS: ATORVASTATIN 80 MG TABLET PO SCH (21:38)
[2020-09-08] MEDS: DONEPEZIL 10 MG TABLET PO SCH (21:39)
[2020-09-08] MEDS: TAMSULOSIN 0.4 MG CAPSULE PO SCH (21:39)
[2020-09-09] MEDS: PIPERACILLIN/TAZOBACTAM 3,375 MG in SODIUM CHLORIDE 0.9% 100 ML IV SCH ×3 (01:10→17:02)
[2020-09-09 06:18] LABS: Basophils % 0.1 % (0.0-0.8); Hematocrit 37.3 VOL% (42.0-52.0); Hemoglobin 13.2 GM/DL (14.0-18.0); Immature Granulocytes % 0.6 %; Immature Granulocytes Absolute 0.04 #; Lymphocytes # 0.9 10*3/uL (1.4-4.0); Lymphocytes % 13.9 % (21.2-54.2); Mean Corpuscular HGB Conc 35.4 GM/DL (32-36); Mean Corpuscular Volume 90.3 FL (87-102); Mean Platelet Volume 10.8 FL (9.6-12.0); Monocytes % 3.7 % (1.7-12.7); Neutrophils % 81.7 % (38.7-73.9); Platelet Count 86 T/CUMM (130-400); Red Blood Count 4.13 MC/CUMM (3.8-5.5); White Blood Count 6.8 T/CUMM (4-12)
[2020-09-09 06:51] LABS: Calcium 8.7 MG/DL (8.5-10.1); Osmolality,Calculated 289.8 MOS/KG (273-304); Potassium 3.9 MMOL/L (3.5-5.1)
[2020-09-09 07:00] LABS: Burr Cells Slight; Hypochromasia Slight; Lymphocytes 15 % (20-55); Microcytosis 1+; Ovalocytes Slight; Platelet Estimate Decreased; Segmented Neutrophils 83 % (50-85); Total Cells Counted 100
[2020-09-09] MEDS: ASPIRIN EC 81 MG TABLET PO SCH (09:49)
[2020-09-09] MEDS: APIXABAN 2.5 MG TABLET PO SCH ×2 (09:49→20:17)
[2020-09-09] MEDS: DILTIAZEM CD 240 MG CAPSULE PO SCH ×2 (09:49→20:16)
[2020-09-09] MEDS: BENZONATATE 100 MG CAPSULE PO SCH ×3 (09:50→20:17)
[2020-09-09] MEDS: MEGESTROL 40 MG TABLET PO SCH ×2 (09:50→20:17)
[2020-09-09] MEDS: DESITIN 4OZ/NYSTATIN 15 GRAM MIXTURE PASTE TOP SCH ×2 (09:50→20:18)
[2020-09-09] MEDS: ESCITALOPRAM 10 MG TABLET PO SCH (09:50)
[2020-09-09] MEDS: FAMOTIDINE 20 MG TABLET PO SCH ×2 (09:50→20:18)
[2020-09-09] MEDS: MEMANTINE 10 MG TABLET PO SCH ×2 (09:50→20:17)
[2020-09-09] MEDS: PANTOPRAZOLE 40 MG VIAL IV SCH (09:50)
[2020-09-09] MEDS: TAMSULOSIN 0.4 MG CAPSULE PO SCH (20:17)
[2020-09-09] MEDS: DONEPEZIL 10 MG TABLET PO SCH (20:17)
[2020-09-09] MEDS: ATORVASTATIN 80 MG TABLET PO SCH (20:17)
[2020-09-09] MEDS: MENTHOL/ZINC OXIDE OINT 71 GM JAR TOP PRN (20:18)
[2020-09-09] MEDS: METOPROLOL TARTRATE 25 MG TABLET PO SCH (20:20)
[2020-09-10 05:08] LABS: Calcium 8.7 MG/DL (8.5-10.1); Osmolality,Calculated 289.8 MOS/KG (273-304); Potassium 3.7 MMOL/L (3.5-5.1)
[2020-09-10 05:16] LABS: Basophils % 0.2 % (0.0-0.8); Eosinophils # 0.1 10*3/uL (0.0-0.87); Eosinophils % 1.2 % (0.00-10.9); Hematocrit 35.7 VOL% (42.0-52.0); Hemoglobin 12.6 GM/DL (14.0-18.0); Immature Granulocytes % 0.7 %; Immature Granulocytes Absolute 0.04 #; Lymphocytes # 1.1 10*3/uL (1.4-4.0); Lymphocytes % 18.1 % (21.2-54.2); Mean Corpuscular HGB Conc 35.3 GM/DL (32-36); Mean Corpuscular Volume 90.2 FL (87-102); Monocytes % 3.2 % (1.7-12.7); Neutrophils % 76.6 % (38.7-73.9); Platelet Count 96 T/CUMM (130-400); Red Blood Count 3.96 MC/CUMM (3.8-5.5); Red Cell Distribution Width 12.9 % (9.3-17.3); White Blood Count 5.9 T/CUMM (4-12)
[2020-09-10 06:31] LABS: Band Neutrophils 1 % (0-10); Eosinophils 3 % (0-10); Lymphocytes 16 % (20-55); Segmented Neutrophils 72 % (50-85); Total Cells Counted 100
[2020-09-10 06:32] LABS: Platelet Estimate Decreased
[2020-09-10 06:33] LABS: Hypochromasia Slight
[2020-09-10] MEDS: MEMANTINE 10 MG TABLET PO SCH ×2 (09:40→21:00)
[2020-09-10] MEDS: ASPIRIN EC 81 MG TABLET PO SCH (09:40)
[2020-09-10] MEDS: APIXABAN 2.5 MG TABLET PO SCH ×2 (09:40→21:01)
[2020-09-10] MEDS: DESITIN 4OZ/NYSTATIN 15 GRAM MIXTURE PASTE TOP SCH ×2 (09:40→21:10)
[2020-09-10] MEDS: FAMOTIDINE 20 MG TABLET PO SCH ×2 (09:40→21:01)
[2020-09-10] MEDS: DILTIAZEM CD 240 MG CAPSULE PO SCH ×2 (09:40→20:59)
[2020-09-10] MEDS: MEGESTROL 40 MG TABLET PO SCH ×2 (09:40→21:01)
[2020-09-10] MEDS: ESCITALOPRAM 10 MG TABLET PO SCH (09:40)
[2020-09-10] MEDS: BENZONATATE 100 MG CAPSULE PO SCH ×3 (09:40→21:00)
[2020-09-10] MEDS: PANTOPRAZOLE 40 MG VIAL IV SCH (09:43)
[2020-09-10] MEDS: DEXTROSE 5% NACL 0.9% 1,000 ML IV SCH ×2 (10:41→17:19)
[2020-09-10] MEDS: ATORVASTATIN 80 MG TABLET PO SCH (21:00)
[2020-09-10] MEDS: DONEPEZIL 10 MG TABLET PO SCH (21:00)
[2020-09-10] MEDS: METOPROLOL TARTRATE 25 MG TABLET PO SCH (21:01)
[2020-09-10] MEDS: TAMSULOSIN 0.4 MG CAPSULE PO SCH (21:01)
[2020-09-11 07:10] LABS: Basophils % 0.4 % (0.0-0.8); Eosinophils # 0.1 10*3/uL (0.0-0.87); Eosinophils % 2.1 % (0.00-10.9); Hematocrit 33.3 VOL% (42.0-52.0); Hemoglobin 11.9 GM/DL (14.0-18.0); Immature Granulocytes % 0.8 %; Immature Granulocytes Absolute 0.04 #; Lymphocytes # 0.9 10*3/uL (1.4-4.0); Lymphocytes % 16.4 % (21.2-54.2); Mean Corpuscular HGB Conc 35.7 GM/DL (32-36); Mean Corpuscular Volume 90.2 FL (87-102); Mean Platelet Volume 10.9 FL (9.6-12.0); Monocytes % 5.3 % (1.7-12.7); Platelet Count 112 T/CUMM (130-400); Red Blood Count 3.69 MC/CUMM (3.8-5.5); Red Cell Distribution Width 12.8 % (9.3-17.3); White Blood Count 5.3 T/CUMM (4-12)
[2020-09-11 07:26] LABS: Calcium 8.3 MG/DL (8.5-10.1); Osmolality,Calculated 288.1 MOS/KG (273-304); Potassium 3.5 MMOL/L (3.5-5.1)
[2020-09-11 08:50] LABS: Anisocytosis 1+; Band Neutrophils 4 % (0-10); Burr Cells 2+; Eosinophils 4 % (0-10); Lymphocytes 13 % (20-55); Nucleated Red Blood Cells 1 (0-5); Ovalocytes Few; Platelet Estimate Adequate; Poikilocytosis 1+; Segmented Neutrophils 73 % (50-85); Total Cells Counted 100
[2020-09-11] MEDS: ESCITALOPRAM 10 MG TABLET PO SCH (09:51)
[2020-09-11] MEDS: PANTOPRAZOLE 40 MG VIAL IV SCH (09:51)
[2020-09-11] MEDS: DESITIN 4OZ/NYSTATIN 15 GRAM MIXTURE PASTE TOP SCH ×2 (09:51→20:29)
[2020-09-11] MEDS: MEGESTROL 40 MG TABLET PO SCH ×2 (09:51→20:27)
[2020-09-11] MEDS: APIXABAN 2.5 MG TABLET PO SCH ×2 (09:51→20:28)
[2020-09-11] MEDS: DILTIAZEM CD 240 MG CAPSULE PO SCH ×2 (09:51→20:27)
[2020-09-11] MEDS: MEMANTINE 10 MG TABLET PO SCH ×2 (09:51→20:28)
[2020-09-11] MEDS: FAMOTIDINE 20 MG TABLET PO SCH ×2 (09:51→20:28)
[2020-09-11] MEDS: ASPIRIN EC 81 MG TABLET PO SCH (09:51)
[2020-09-11] MEDS: BENZONATATE 100 MG CAPSULE PO SCH ×3 (09:51→20:28)
[2020-09-11] MEDS: METOPROLOL TARTRATE 25 MG TABLET PO SCH (20:27)
[2020-09-11] MEDS: TAMSULOSIN 0.4 MG CAPSULE PO SCH (20:27)
[2020-09-11] MEDS: DONEPEZIL 10 MG TABLET PO SCH (20:27)
[2020-09-11] MEDS: ATORVASTATIN 80 MG TABLET PO SCH (20:28)
[2020-09-11] MEDS: MENTHOL/ZINC OXIDE OINT 71 GM JAR TOP PRN (20:29)
[2020-09-12] MEDS: DEXTROSE 5% NACL 0.9% 1,000 ML IV SCH (06:57)
[2020-09-12 07:07] LABS: Basophils % 0.4 % (0.0-0.8); Eosinophils # 0.1 10*3/uL (0.0-0.87); Eosinophils % 1.8 % (0.00-10.9); Hematocrit 35.5 VOL% (42.0-52.0); Hemoglobin 12.7 GM/DL (14.0-18.0); Immature Granulocytes % 0.7 %; Immature Granulocytes Absolute 0.04 #; Lymphocytes # 0.8 10*3/uL (1.4-4.0); Mean Corpuscular HGB Conc 35.8 GM/DL (32-36); Mean Corpuscular Volume 89.6 FL (87-102); Mean Platelet Volume 10.7 FL (9.6-12.0); Monocytes % 6.2 % (1.7-12.7); Neutrophils % 75.9 % (38.7-73.9); Platelet Count 134 T/CUMM (130-400); Red Blood Count 3.96 MC/CUMM (3.8-5.5); Red Cell Distribution Width 12.8 % (9.3-17.3); White Blood Count 5.5 T/CUMM (4-12)
[2020-09-12 07:24] LABS: Albumin 2.1 G/DL (3.4-5.0); Bilirubin,Total 1.8 MG/DL (0.2-1.0); Calcium 8.8 MG/DL (8.5-10.1); Osmolality,Calculated 294.4 MOS/KG (273-304); Potassium 3.7 MMOL/L (3.5-5.1); Total Protein 6.7 G/DL (6.4-8.3)
[2020-09-12 07:48] LABS: Anisocytosis Slight; Band Neutrophils 1 % (0-10); Burr Cells 2+; Eosinophils 1 % (0-10); Lymphocytes 16 % (20-55); Platelet Estimate Adequate; Poikilocytosis Slight; Segmented Neutrophils 72 % (50-85); Total Cells Counted 100
[2020-09-12] MEDS: DILTIAZEM CD 240 MG CAPSULE PO SCH ×2 (08:22→21:25)
[2020-09-12] MEDS: ASPIRIN EC 81 MG TABLET PO SCH (08:22)
[2020-09-12] MEDS: APIXABAN 2.5 MG TABLET PO SCH ×2 (08:23→21:25)
[2020-09-12] MEDS: ESCITALOPRAM 10 MG TABLET PO SCH (08:23)
[2020-09-12] MEDS: FAMOTIDINE 20 MG TABLET PO SCH ×2 (08:23→21:25)
[2020-09-12] MEDS: PANTOPRAZOLE 40 MG VIAL IV SCH (08:23)
[2020-09-12] MEDS: MEGESTROL 40 MG TABLET PO SCH (08:23)
[2020-09-12] MEDS: MEMANTINE 10 MG TABLET PO SCH ×2 (08:23→21:25)
[2020-09-12] MEDS: BENZONATATE 100 MG CAPSULE PO SCH ×3 (08:24→21:25)
[2020-09-12] MEDS: DESITIN 4OZ/NYSTATIN 15 GRAM MIXTURE PASTE TOP SCH ×2 (08:24→21:25)
[2020-09-12] MEDS: DEXTROSE 5% 1,000 ML IV SCH (09:38)
[2020-09-12] MEDS ORDERED: FUROSEMIDE 40 MG/4 ML VIAL IV ONE (15:31)
[2020-09-12] MEDS: DONEPEZIL 10 MG TABLET PO SCH (21:24)
[2020-09-12] MEDS: TAMSULOSIN 0.4 MG CAPSULE PO SCH (21:25)
[2020-09-12] MEDS: METOPROLOL TARTRATE 25 MG TABLET PO SCH (21:25)
[2020-09-13 06:27] LABS: Basophils % 0.4 % (0.0-0.8); Eosinophils # 0.2 10*3/uL (0.0-0.87); Eosinophils % 3.5 % (0.00-10.9); Hematocrit 33.9 VOL% (42.0-52.0); Hemoglobin 12.1 GM/DL (14.0-18.0); Immature Granulocytes % 0.8 %; Immature Granulocytes Absolute 0.04 #; Lymphocytes # 0.9 10*3/uL (1.4-4.0); Lymphocytes % 16.5 % (21.2-54.2); Mean Corpuscular HGB Conc 35.7 GM/DL (32-36); Mean Corpuscular Volume 89.4 FL (87-102); Mean Platelet Volume 10.6 FL (9.6-12.0); Monocytes % 5.8 % (1.7-12.7); Platelet Count 140 T/CUMM (130-400); Red Blood Count 3.79 MC/CUMM (3.8-5.5); White Blood Count 5.2 T/CUMM (4-12)
[2020-09-13 06:45] LABS: Calcium 8.6 MG/DL (8.5-10.1); Osmolality,Calculated 287.1 MOS/KG (273-304); Potassium 3.5 MMOL/L (3.5-5.1)
[2020-09-13 06:58] LABS: Eosinophils 1 % (0-10); Lymphocytes 19 % (20-55); Platelet Estimate Adequate; Segmented Neutrophils 71 % (50-85); Total Cells Counted 100
[2020-09-13 07:00] LABS: Hypochromasia Slight; Microcytosis Slight; Ovalocytes Slight
[2020-09-13] MEDS: MEMANTINE 10 MG TABLET PO SCH ×2 (08:35→20:10)
[2020-09-13] MEDS: DESITIN 4OZ/NYSTATIN 15 GRAM MIXTURE PASTE TOP SCH ×2 (08:35→20:10)
[2020-09-13] MEDS: ASPIRIN EC 81 MG TABLET PO SCH (08:35)
[2020-09-13] MEDS: FAMOTIDINE 20 MG TABLET PO SCH ×2 (08:35→20:10)
[2020-09-13] MEDS: BENZONATATE 100 MG CAPSULE PO SCH ×3 (08:35→20:10)
[2020-09-13] MEDS: DILTIAZEM CD 240 MG CAPSULE PO SCH ×2 (08:35→20:10)
[2020-09-13] MEDS: APIXABAN 2.5 MG TABLET PO SCH ×2 (08:35→20:10)
[2020-09-13] MEDS: ESCITALOPRAM 10 MG TABLET PO SCH (08:35)
[2020-09-13] MEDS: DEXTROSE 5% 1,000 ML IV SCH (08:35)
[2020-09-13] MEDS: PANTOPRAZOLE 40 MG VIAL IV SCH (08:35)
[2020-09-13] MEDS: METOPROLOL TARTRATE 25 MG TABLET PO SCH (20:10)
[2020-09-13] MEDS: DONEPEZIL 10 MG TABLET PO SCH (20:10)
[2020-09-13] MEDS: TAMSULOSIN 0.4 MG CAPSULE PO SCH (20:10)
[2020-09-14] MEDS: DEXTROSE 5% 1,000 ML IV SCH (03:56)
[2020-09-14] MEDS: ESCITALOPRAM 10 MG TABLET PO SCH (09:00)
[2020-09-14] MEDS ORDERED: LEVOFLOXACIN 500 MG TABLET PO SCH (09:00)
[2020-09-14] MEDS: APIXABAN 2.5 MG TABLET PO SCH (09:00)
[2020-09-14] MEDS: MEMANTINE 10 MG TABLET PO SCH (09:00)
[2020-09-14] MEDS: ASPIRIN EC 81 MG TABLET PO SCH (09:00)
[2020-09-14] MEDS: FAMOTIDINE 20 MG TABLET PO SCH (09:00)
[2020-09-14] MEDS: BENZONATATE 100 MG CAPSULE PO SCH (09:00)
[2020-09-14] MEDS: DILTIAZEM CD 240 MG CAPSULE PO SCH (09:01)
[2020-09-14] MEDS: DESITIN 4OZ/NYSTATIN 15 GRAM MIXTURE PASTE TOP SCH (09:02)
[2020-09-14] MEDS: PANTOPRAZOLE 40 MG VIAL IV SCH (09:02)
[2020-09-14 12:13] VITALS: BP 129/65
== END 2020-09-14 12:13 | disposition swing bed (61) | DRG 177 ==
LOC: EDUNIT# → EDBD → N.ED 16:35 → N.EDINP 16:35 → OBSVTOIN 19:41 → N.2E 09-01 09:11
PROVIDERS: ADMIT Internal Medicine; ATTEND Internal Medicine

== ENCOUNTER 2022-03-27 12:19 | Inpatient (IN) ==
[2022-03-27] MEDS ORDERED: DILTIAZEM 25 MG/5 ML VIAL IV STA (13:26)
[2022-03-27 14:29] LABS: Basophils % 0.3 % (0.0-0.8); Eosinophils % 0.2 % (0.00-10.9); Hematocrit 37.1 VOL% (42.0-52.0); Hemoglobin 12.8 GM/DL (14.0-18.0); Immature Granulocytes % 0.3 %; Immature Granulocytes Absolute 0.04 #; Lymphocytes # 1.1 10*3/uL (1.4-4.0); Lymphocytes % 9.2 % (21.2-54.2); Mean Corpuscular HGB Conc 34.5 GM/DL (32-36); Mean Corpuscular Volume 94.4 FL (87-102); Mean Platelet Volume 10.9 FL (9.6-12.0); Platelet Count 110 T/CUMM (130-400); Red Blood Count 3.93 MC/CUMM (3.8-5.5); Red Cell Distribution Width 13.5 % (9.3-17.3); White Blood Count 11.4 T/CUMM (4-12)
[2022-03-27] MEDS ORDERED: DILTIAZEM INJ 100 MG in SODIUM CHLORIDE 0.9% 100 ML IV SCH (14:30)
[2022-03-27 14:55] LABS: Albumin 2.5 G/DL (3.4-5.0); Bilirubin,Total 1.8 MG/DL (0.20-1.00); Calcium 9.2 MG/DL (8.5-10.1); Osmolality,Calculated 288.1 MOS/KG (273-304); Potassium 3.4 MMOL/L (3.5-5.1); Total Protein 6.9 G/DL (6.4-8.2)
[2022-03-27 15:04] LABS: INR 1.2; PT Patient Result 13.5 SECS (10.5-12.0); Partial Thromboplastin Time 39.3 SECS (23.8-32.1)
[2022-03-27 15:18] LABS: Ovalocytes Slight
[2022-03-27 15:19] LABS: Platelet Estimate Decreased
[2022-03-27 15:20] LABS: Burr Cells Slight
[2022-03-27] MEDS ORDERED: cefTRIAXone 1,000 MG in SODIUM CHLORIDE 0.9% 100 ML IV STA (15:53)
[2022-03-27] MEDS ORDERED: AZITHROMYCIN INJ 500 MG in SODIUM CHLORIDE 0.9% 250 ML IV STA (15:53)
[2022-03-27] MEDS ORDERED: ONDANSETRON 4 MG/2 ML VIAL IV PRN (17:12)
[2022-03-27] MEDS: SODIUM CHLORIDE 0.9% 1,000 ML IV SCH (18:51)
[2022-03-27] MEDS: DILTIAZEM 30 MG TABLET PO SCH (21:11)
[2022-03-27] MEDS: DOCUSATE SODIUM 100 MG CAPSULE PO SCH (21:11)
[2022-03-28] MEDS: SODIUM CHLORIDE 0.9% 1,000 ML IV SCH ×3 (01:34→17:07)
[2022-03-28] MEDS: PANTOPRAZOLE 40 MG TABLET PO SCH (08:39)
[2022-03-28] MEDS: DILTIAZEM 30 MG TABLET PO SCH (08:39)
[2022-03-28] MEDS: DOCUSATE SODIUM 100 MG CAPSULE PO SCH ×2 (08:39→21:20)
[2022-03-28] MEDS ORDERED: ALBUTEROL/IPRATROPIUM 3 ML NEB RESP TX PRN (08:42)
[2022-03-28] MEDS ORDERED: DILTIAZEM CD 180 MG CAPSULE PO SCH (09:00)
[2022-03-28] MEDS ORDERED: METOPROLOL SUCCINATE XL 50 MG TABLET PO SCH (09:00)
[2022-03-28] MEDS: APIXABAN 2.5 MG TABLET PO SCH ×2 (09:45→21:20)
[2022-03-28] MEDS: CALCIUM (CARBONATE)/VITAMIN D 600 MG-400 UNIT TABLET PO SCH (09:45)
[2022-03-28] MEDS: CHOLECALCIFEROL 1,000 UNIT TABLET PO SCH (09:45)
[2022-03-28] MEDS: cefTRIAXone 1,000 MG in SODIUM CHLORIDE 0.9% 100 ML IV SCH (09:45)
[2022-03-28] MEDS: AZITHROMYCIN 250 MG TABLET PO SCH (09:45)
[2022-03-28] MEDS: ASCORBIC ACID 500 MG TABLET PO SCH ×2 (09:45→21:20)
[2022-03-28] MEDS: MEMANTINE 10 MG TABLET PO SCH ×2 (09:45→21:20)
[2022-03-28] MEDS ORDERED: POTASSIUM CHLORIDE 20 MEQ TABLET PO ONE (09:49)
[2022-03-28] MEDS ORDERED: DILTIAZEM CD 120 MG CAPSULE PO ONE (10:16)
[2022-03-28] MEDS: ALBUTEROL/IPRATROPIUM 3 ML NEB RESP TX SCH ×2 (13:25→19:30)
[2022-03-28] MEDS ORDERED: DONEPEZIL 10 MG TABLET PO SCH (21:00)
[2022-03-28] MEDS: TAMSULOSIN 0.4 MG CAPSULE PO SCH (21:19)
[2022-03-28] MEDS: ATORVASTATIN 80 MG TABLET PO SCH (21:20)
[2022-03-28] MEDS: GABAPENTIN 300 MG CAPSULE PO SCH (21:20)
[2022-03-28] MEDS: CARBIDOPA/LEVODOPA 25-100 MG TABLET PO SCH (21:20)
[2022-03-29] MEDS: ALBUTEROL/IPRATROPIUM 3 ML NEB RESP TX SCH ×5 (00:08→23:51)
[2022-03-29] MEDS: SODIUM CHLORIDE 0.9% 1,000 ML IV SCH ×3 (02:34→16:34)
[2022-03-29 06:06] LABS: Basophils % 0.4 % (0.0-0.8); Eosinophils # 0.1 10*3/uL (0.0-0.87); Hematocrit 31.2 VOL% (42.0-52.0); Hemoglobin 10.6 GM/DL (14.0-18.0); Immature Granulocytes % 0.4 %; Immature Granulocytes Absolute 0.03 #; Lymphocytes # 1.1 10*3/uL (1.4-4.0); Mean Corpuscular Volume 94.3 FL (87-102); Monocytes # 0.8 10*3/uL (0.11-0.8); Neutrophils % 71.2 % (38.7-73.9); Platelet Count 106 T/CUMM (130-400); Red Blood Count 3.31 MC/CUMM (3.8-5.5); Red Cell Distribution Width 13.3 % (9.3-17.3); White Blood Count 7.1 T/CUMM (4-12)
[2022-03-29 06:23] LABS: Calcium 8.4 MG/DL (8.5-10.1); Osmolality,Calculated 282.3 MOS/KG (273-304); Potassium 3.5 MMOL/L (3.5-5.1)
[2022-03-29] MEDS ORDERED: POTASSIUM CHLORIDE 20 MEQ TABLET PO ONE (08:09)
[2022-03-29] MEDS ORDERED: MAGNESIUM SULF RIDER 2 GM/50 ML PREMIX IV ONE (08:13)
[2022-03-29] MEDS: METOPROLOL SUCCINATE XL 25 MG TABLET PO SCH (08:50)
[2022-03-29] MEDS: APIXABAN 2.5 MG TABLET PO SCH ×2 (08:51→20:39)
[2022-03-29] MEDS: ASCORBIC ACID 500 MG TABLET PO SCH ×2 (08:51→20:39)
[2022-03-29] MEDS: AZITHROMYCIN 250 MG TABLET PO SCH (08:51)
[2022-03-29] MEDS: CHOLECALCIFEROL 1,000 UNIT TABLET PO SCH (08:52)
[2022-03-29] MEDS: CALCIUM (CARBONATE)/VITAMIN D 600 MG-400 UNIT TABLET PO SCH (08:52)
[2022-03-29] MEDS: DILTIAZEM CD 240 MG CAPSULE PO SCH (08:52)
[2022-03-29] MEDS: MEMANTINE 10 MG TABLET PO SCH ×2 (08:53→20:39)
[2022-03-29] MEDS: PANTOPRAZOLE 40 MG TABLET PO SCH (08:53)
[2022-03-29] MEDS: DOCUSATE SODIUM 100 MG CAPSULE PO SCH ×2 (08:54→20:39)
[2022-03-29] MEDS: cefTRIAXone 1,000 MG in SODIUM CHLORIDE 0.9% 100 ML IV SCH (08:58)
[2022-03-29] MEDS ORDERED: ESCITALOPRAM 10 MG TABLET PO SCH (09:00)
[2022-03-29] MEDS: CARBIDOPA/LEVODOPA 25-100 MG TABLET PO SCH (20:38)
[2022-03-29] MEDS: GABAPENTIN 300 MG CAPSULE PO SCH (20:38)
[2022-03-29] MEDS: TAMSULOSIN 0.4 MG CAPSULE PO SCH (20:38)
[2022-03-29] MEDS: ATORVASTATIN 80 MG TABLET PO SCH (20:38)
[2022-03-29] MEDS: ACETAMINOPHEN 325 MG TABLET PO PRN (20:39)
[2022-03-30] MEDS: SODIUM CHLORIDE 0.9% 1,000 ML IV SCH ×3 (04:13→19:17)
[2022-03-30 05:38] LABS: Basophils % 0.4 % (0.0-0.8); Eosinophils # 0.3 10*3/uL (0.0-0.87); Eosinophils % 3.6 % (0.00-10.9); Hematocrit 31.2 VOL% (42.0-52.0); Hemoglobin 10.4 GM/DL (14.0-18.0); Immature Granulocytes % 0.6 %; Immature Granulocytes Absolute 0.04 #; Lymphocytes # 1.1 10*3/uL (1.4-4.0); Lymphocytes % 15.5 % (21.2-54.2); Mean Corpuscular HGB Conc 33.3 GM/DL (32-36); Mean Corpuscular Volume 95.1 FL (87-102); Mean Platelet Volume 10.5 FL (9.6-12.0); Monocytes # 0.7 10*3/uL (0.11-0.8); Monocytes % 9.6 % (1.7-12.7); Neutrophils % 70.3 % (38.7-73.9); Platelet Count 113 T/CUMM (130-400); Red Blood Count 3.28 MC/CUMM (3.8-5.5); Red Cell Distribution Width 13.6 % (9.3-17.3); White Blood Count 7.2 T/CUMM (4-12)
[2022-03-30 06:03] LABS: Calcium 8.5 MG/DL (8.5-10.1); Potassium 3.2 MMOL/L (3.5-5.1)
[2022-03-30] MEDS: ALBUTEROL/IPRATROPIUM 3 ML NEB RESP TX SCH ×3 (07:24→20:08)
[2022-03-30] MEDS: CHOLECALCIFEROL 1,000 UNIT TABLET PO SCH (09:32)
[2022-03-30] MEDS: PANTOPRAZOLE 40 MG TABLET PO SCH (09:32)
[2022-03-30] MEDS: cefTRIAXone 1,000 MG in SODIUM CHLORIDE 0.9% 100 ML IV SCH (09:32)
[2022-03-30] MEDS: ASCORBIC ACID 500 MG TABLET PO SCH ×2 (09:32→20:39)
[2022-03-30] MEDS: MEMANTINE 10 MG TABLET PO SCH ×2 (09:32→20:39)
[2022-03-30] MEDS: APIXABAN 2.5 MG TABLET PO SCH ×2 (09:32→20:38)
[2022-03-30] MEDS: METOPROLOL SUCCINATE XL 25 MG TABLET PO SCH (09:32)
[2022-03-30] MEDS: AZITHROMYCIN 250 MG TABLET PO SCH (09:32)
[2022-03-30] MEDS: DOCUSATE SODIUM 100 MG CAPSULE PO SCH ×2 (09:32→20:38)
[2022-03-30] MEDS: DILTIAZEM CD 240 MG CAPSULE PO SCH (09:35)
[2022-03-30] MEDS: CALCIUM (CARBONATE)/VITAMIN D 600 MG-400 UNIT TABLET PO SCH (14:10)
[2022-03-30] MEDS ORDERED: METOPROLOL SUCCINATE XL 25 MG TABLET PO ONE (14:30)
[2022-03-30] MEDS ORDERED: POTASSIUM CHLORIDE 20 MEQ TABLET PO ONE (14:30)
[2022-03-30] MEDS: ATORVASTATIN 80 MG TABLET PO SCH (20:38)
[2022-03-30] MEDS: TAMSULOSIN 0.4 MG CAPSULE PO SCH (20:38)
[2022-03-30] MEDS: CARBIDOPA/LEVODOPA 25-100 MG TABLET PO SCH (20:39)
[2022-03-30] MEDS: GABAPENTIN 300 MG CAPSULE PO SCH (20:39)
[2022-03-31] MEDS: ALBUTEROL/IPRATROPIUM 3 ML NEB RESP TX SCH ×5 (00:40→23:38)
[2022-03-31 05:14] LABS: Basophils % 0.3 % (0.0-0.8); Eosinophils # 0.2 10*3/uL (0.0-0.87); Eosinophils % 2.6 % (0.00-10.9); Hematocrit 30.7 VOL% (42.0-52.0); Hemoglobin 10.5 GM/DL (14.0-18.0); Immature Granulocytes % 0.6 %; Immature Granulocytes Absolute 0.04 #; Lymphocytes % 13.5 % (21.2-54.2); Mean Corpuscular HGB Conc 34.2 GM/DL (32-36); Mean Corpuscular Volume 93.3 FL (87-102); Mean Platelet Volume 10.5 FL (9.6-12.0); Monocytes # 0.6 10*3/uL (0.11-0.8); Monocytes % 8.4 % (1.7-12.7); Neutrophils % 74.6 % (38.7-73.9); Platelet Count 132 T/CUMM (130-400); Red Blood Count 3.29 MC/CUMM (3.8-5.5); Red Cell Distribution Width 13.4 % (9.3-17.3)
[2022-03-31 05:30] LABS: Calcium 8.8 MG/DL (8.5-10.1); Potassium 3.6 MMOL/L (3.5-5.1)
[2022-03-31] MEDS ORDERED: TAMSULOSIN 0.4 MG CAPSULE PO ONE (09:30)
[2022-03-31] MEDS: DOCUSATE SODIUM 100 MG CAPSULE PO SCH ×2 (09:55→21:14)
[2022-03-31] MEDS: AZITHROMYCIN 250 MG TABLET PO SCH (09:55)
[2022-03-31] MEDS: ASCORBIC ACID 500 MG TABLET PO SCH ×2 (09:55→21:15)
[2022-03-31] MEDS: MEMANTINE 10 MG TABLET PO SCH ×2 (09:55→21:15)
[2022-03-31] MEDS: APIXABAN 2.5 MG TABLET PO SCH ×2 (09:55→21:14)
[2022-03-31] MEDS: TAMSULOSIN 0.4 MG CAPSULE PO SCH ×2 (09:55→21:14)
[2022-03-31] MEDS: CALCIUM (CARBONATE)/VITAMIN D 600 MG-400 UNIT TABLET PO SCH (09:55)
[2022-03-31] MEDS: METOPROLOL SUCCINATE XL 100 MG TABLET PO SCH (09:55)
[2022-03-31] MEDS: CHOLECALCIFEROL 1,000 UNIT TABLET PO SCH (09:55)
[2022-03-31] MEDS: PANTOPRAZOLE 40 MG TABLET PO SCH (09:55)
[2022-03-31] MEDS: DILTIAZEM CD 240 MG CAPSULE PO SCH (09:55)
[2022-03-31] MEDS: cefTRIAXone 1,000 MG in SODIUM CHLORIDE 0.9% 100 ML IV SCH (09:56)
[2022-03-31] MEDS: SODIUM CHLORIDE 0.9% 1,000 ML IV SCH (14:41)
[2022-03-31] MEDS: ATORVASTATIN 80 MG TABLET PO SCH (21:14)
[2022-03-31] MEDS: GABAPENTIN 300 MG CAPSULE PO SCH (21:15)
[2022-03-31] MEDS: CARBIDOPA/LEVODOPA 25-100 MG TABLET PO SCH (21:15)
[2022-04-01] MEDS: ALBUTEROL/IPRATROPIUM 3 ML NEB RESP TX SCH ×3 (07:33→20:28)
[2022-04-01] MEDS: CHOLECALCIFEROL 1,000 UNIT TABLET PO SCH (09:32)
[2022-04-01] MEDS: CALCIUM (CARBONATE)/VITAMIN D 600 MG-400 UNIT TABLET PO SCH (09:32)
[2022-04-01] MEDS: TAMSULOSIN 0.4 MG CAPSULE PO SCH ×2 (09:32→21:59)
[2022-04-01] MEDS: ASCORBIC ACID 500 MG TABLET PO SCH ×2 (09:32→21:58)
[2022-04-01] MEDS: DILTIAZEM CD 240 MG CAPSULE PO SCH (09:33)
[2022-04-01] MEDS: AZITHROMYCIN 250 MG TABLET PO SCH (09:33)
[2022-04-01] MEDS: PANTOPRAZOLE 40 MG TABLET PO SCH (09:33)
[2022-04-01] MEDS: DOCUSATE SODIUM 100 MG CAPSULE PO SCH ×2 (09:33→21:59)
[2022-04-01] MEDS: MEMANTINE 10 MG TABLET PO SCH ×2 (09:33→21:59)
[2022-04-01] MEDS: APIXABAN 2.5 MG TABLET PO SCH ×2 (09:33→21:59)
[2022-04-01] MEDS: METOPROLOL SUCCINATE XL 100 MG TABLET PO SCH (09:36)
[2022-04-01] MEDS: cefTRIAXone 1,000 MG in SODIUM CHLORIDE 0.9% 100 ML IV SCH (09:37)
[2022-04-01] MEDS: SODIUM CHLORIDE 0.9% 1,000 ML IV SCH ×2 (09:37→14:17)
[2022-04-01] MEDS: ATORVASTATIN 80 MG TABLET PO SCH (21:58)
[2022-04-01] MEDS: GABAPENTIN 300 MG CAPSULE PO SCH (21:59)
[2022-04-01] MEDS: CARBIDOPA/LEVODOPA 25-100 MG TABLET PO SCH (21:59)
[2022-04-02] MEDS: SODIUM CHLORIDE 0.9% 1,000 ML IV SCH (03:37)
[2022-04-02 05:30] LABS: Basophils % 0.4 % (0.0-0.8); Eosinophils # 0.2 10*3/uL (0.0-0.87); Eosinophils % 3.2 % (0.00-10.9); Hematocrit 29.5 VOL% (42.0-52.0); Hemoglobin 9.9 GM/DL (14.0-18.0); Immature Granulocytes % 0.7 %; Immature Granulocytes Absolute 0.04 #; Lymphocytes # 0.8 10*3/uL (1.4-4.0); Lymphocytes % 14.7 % (21.2-54.2); Mean Corpuscular HGB Conc 33.6 GM/DL (32-36); Mean Corpuscular Volume 93.7 FL (87-102); Monocytes # 0.4 10*3/uL (0.11-0.8); Monocytes % 7.5 % (1.7-12.7); Neutrophils % 73.5 % (38.7-73.9); Platelet Count 153 T/CUMM (130-400); Red Blood Count 3.15 MC/CUMM (3.8-5.5); Red Cell Distribution Width 13.7 % (9.3-17.3); White Blood Count 5.6 T/CUMM (4-12)
[2022-04-02 05:52] LABS: Calcium 8.8 MG/DL (8.5-10.1); Osmolality,Calculated 285.1 MOS/KG (273-304); Potassium 3.5 MMOL/L (3.5-5.1)
[2022-04-02] MEDS: ALBUTEROL/IPRATROPIUM 3 ML NEB RESP TX SCH ×4 (07:55→19:24)
[2022-04-02] MEDS: cefTRIAXone 1,000 MG in SODIUM CHLORIDE 0.9% 100 ML IV SCH (10:24)
[2022-04-02] MEDS: DILTIAZEM CD 300 MG CAPSULE PO SCH (10:25)
[2022-04-02] MEDS: MEMANTINE 10 MG TABLET PO SCH ×2 (10:25→21:01)
[2022-04-02] MEDS: CALCIUM (CARBONATE)/VITAMIN D 600 MG-400 UNIT TABLET PO SCH (10:26)
[2022-04-02] MEDS: DOCUSATE SODIUM 100 MG CAPSULE PO SCH ×2 (10:26→21:01)
[2022-04-02] MEDS: TAMSULOSIN 0.4 MG CAPSULE PO SCH ×2 (10:27→21:01)
[2022-04-02] MEDS: PANTOPRAZOLE 40 MG TABLET PO SCH (10:27)
[2022-04-02] MEDS: ASCORBIC ACID 500 MG TABLET PO SCH ×2 (10:27→21:01)
[2022-04-02] MEDS: APIXABAN 2.5 MG TABLET PO SCH ×2 (10:27→21:02)
[2022-04-02] MEDS: METOPROLOL SUCCINATE XL 100 MG TABLET PO SCH (10:27)
[2022-04-02] MEDS: CHOLECALCIFEROL 1,000 UNIT TABLET PO SCH (10:28)
[2022-04-02] MEDS: AZITHROMYCIN 250 MG TABLET PO SCH (10:28)
[2022-04-02] MEDS ORDERED: POTASSIUM CHLORIDE 20 MEQ TABLET PO ONE (10:59)
[2022-04-02] MEDS: ATORVASTATIN 80 MG TABLET PO SCH (21:01)
[2022-04-02] MEDS: GABAPENTIN 300 MG CAPSULE PO SCH (21:02)
[2022-04-02] MEDS: CARBIDOPA/LEVODOPA 25-100 MG TABLET PO SCH (21:02)
[2022-04-03] MEDS: ALBUTEROL/IPRATROPIUM 3 ML NEB RESP TX SCH ×2 (00:16→07:15)
[2022-04-03] MEDS: SODIUM CHLORIDE 0.9% 1,000 ML IV SCH ×2 (04:46→05:19)
[2022-04-03 05:07] LABS: Basophils % 0.3 % (0.0-0.8); Eosinophils # 0.2 10*3/uL (0.0-0.87); Eosinophils % 3.5 % (0.00-10.9); Hematocrit 29.4 VOL% (42.0-52.0); Immature Granulocytes % 0.7 %; Immature Granulocytes Absolute 0.04 #; Lymphocytes % 17.4 % (21.2-54.2); Mean Corpuscular Volume 94.8 FL (87-102); Mean Platelet Volume 10.4 FL (9.6-12.0); Monocytes # 0.5 10*3/uL (0.11-0.8); Neutrophils % 70.1 % (38.7-73.9); Platelet Count 168 T/CUMM (130-400); Red Cell Distribution Width 13.9 % (9.3-17.3)
[2022-04-03 05:31] LABS: Albumin 2.2 G/DL (3.4-5.0); Bilirubin,Total 0.8 MG/DL (0.20-1.00); Calcium 8.9 MG/DL (8.5-10.1); Osmolality,Calculated 282.3 MOS/KG (273-304); Potassium 3.5 MMOL/L (3.5-5.1); Total Protein 6.4 G/DL (6.4-8.2)
[2022-04-03] MEDS: PANTOPRAZOLE 40 MG TABLET PO SCH (09:56)
[2022-04-03] MEDS: CALCIUM (CARBONATE)/VITAMIN D 600 MG-400 UNIT TABLET PO SCH (09:57)
[2022-04-03] MEDS: ASCORBIC ACID 500 MG TABLET PO SCH ×2 (09:57→21:45)
[2022-04-03] MEDS: APIXABAN 2.5 MG TABLET PO SCH ×2 (09:57→21:45)
[2022-04-03] MEDS: MEMANTINE 10 MG TABLET PO SCH ×2 (09:57→21:44)
[2022-04-03] MEDS: CHOLECALCIFEROL 1,000 UNIT TABLET PO SCH (09:57)
[2022-04-03] MEDS: AZITHROMYCIN 250 MG TABLET PO SCH (09:57)
[2022-04-03] MEDS: METOPROLOL SUCCINATE XL 100 MG TABLET PO SCH (09:57)
[2022-04-03] MEDS: DOCUSATE SODIUM 100 MG CAPSULE PO SCH ×2 (09:57→21:45)
[2022-04-03] MEDS: DILTIAZEM CD 300 MG CAPSULE PO SCH (09:58)
[2022-04-03] MEDS: TAMSULOSIN 0.4 MG CAPSULE PO SCH ×2 (09:58→21:45)
[2022-04-03] MEDS ORDERED: DILTIAZEM 60 MG TABLET PO ONE (10:17)
[2022-04-03] MEDS ORDERED: LEVALBUTEROL 1.25 MG/3 ML NEB RESP TX PRN (10:24)
[2022-04-03] MEDS ORDERED: POTASSIUM CHLORIDE 20 MEQ TABLET PO ONE (10:29)
[2022-04-03] MEDS: cefTRIAXone 1,000 MG in SODIUM CHLORIDE 0.9% 100 ML IV SCH (10:33)
[2022-04-03] MEDS ORDERED: LEVALBUTEROL 1.25 MG/3 ML NEB RESP TX SCH (13:00)
[2022-04-03] MEDS: GABAPENTIN 300 MG CAPSULE PO SCH (21:45)
[2022-04-03] MEDS: CARBIDOPA/LEVODOPA 25-100 MG TABLET PO SCH (21:45)
[2022-04-03] MEDS: ACETAMINOPHEN 325 MG TABLET PO PRN (21:45)
[2022-04-03] MEDS: BENZONATATE 100 MG CAPSULE PO SCH (23:50)
[2022-04-04] MEDS: traMADol 50 MG TABLET PO PRN ×2 (05:49→20:34)
[2022-04-04 06:01] LABS: Basophils % 0.5 % (0.0-0.8); Eosinophils # 0.3 10*3/uL (0.0-0.87); Eosinophils % 4.3 % (0.00-10.9); Immature Granulocytes % 0.6 %; Immature Granulocytes Absolute 0.04 #; Lymphocytes # 1.3 10*3/uL (1.4-4.0); Lymphocytes % 19.7 % (21.2-54.2); Mean Corpuscular HGB Conc 33.3 GM/DL (32-36); Mean Corpuscular Volume 96.2 FL (87-102); Mean Platelet Volume 10.3 FL (9.6-12.0); Monocytes # 0.5 10*3/uL (0.11-0.8); Monocytes % 7.1 % (1.7-12.7); Neutrophils % 67.8 % (38.7-73.9); Platelet Count 187 T/CUMM (130-400); Red Blood Count 3.12 MC/CUMM (3.8-5.5); Red Cell Distribution Width 14.2 % (9.3-17.3); White Blood Count 6.5 T/CUMM (4-12)
[2022-04-04 06:15] LABS: Calcium 9.1 MG/DL (8.5-10.1); Osmolality,Calculated 282.3 MOS/KG (273-304); Potassium 4.1 MMOL/L (3.5-5.1)
[2022-04-04] MEDS ORDERED: ALBUTEROL/IPRATROPIUM 3 ML NEB RESP TX PRN (08:42)
[2022-04-04] MEDS: cefTRIAXone 1,000 MG in SODIUM CHLORIDE 0.9% 100 ML IV SCH (09:37)
[2022-04-04] MEDS: methylPREDNISolone SOD SUC 40 MG/1 ML VIAL IV SCH ×2 (09:41→17:15)
[2022-04-04] MEDS: DILTIAZEM CD 180 MG CAPSULE PO SCH (09:42)
[2022-04-04] MEDS: TAMSULOSIN 0.4 MG CAPSULE PO SCH ×2 (09:43→20:35)
[2022-04-04] MEDS: ASCORBIC ACID 500 MG TABLET PO SCH ×2 (09:43→20:34)
[2022-04-04] MEDS: APIXABAN 2.5 MG TABLET PO SCH ×2 (09:43→20:33)
[2022-04-04] MEDS: CHOLECALCIFEROL 1,000 UNIT TABLET PO SCH (09:43)
[2022-04-04] MEDS: MEMANTINE 10 MG TABLET PO SCH ×2 (09:44→20:34)
[2022-04-04] MEDS: BENZONATATE 100 MG CAPSULE PO SCH ×3 (09:44→20:34)
[2022-04-04] MEDS: METOPROLOL SUCCINATE XL 100 MG TABLET PO SCH (09:44)
[2022-04-04] MEDS: PANTOPRAZOLE 40 MG TABLET PO SCH (09:44)
[2022-04-04] MEDS: DOCUSATE SODIUM 100 MG CAPSULE PO SCH ×2 (09:44→20:33)
[2022-04-04] MEDS: CALCIUM (CARBONATE)/VITAMIN D 600 MG-400 UNIT TABLET PO SCH (09:44)
[2022-04-04] MEDS: AZITHROMYCIN 250 MG TABLET PO SCH (09:44)
[2022-04-04] MEDS ORDERED: METOPROLOL TARTRATE 5 MG/5 ML VIAL IV ONE (14:28)
[2022-04-04] MEDS: CARBIDOPA/LEVODOPA 25-100 MG TABLET PO SCH (20:33)
[2022-04-04] MEDS: GABAPENTIN 300 MG CAPSULE PO SCH (20:34)
[2022-04-05] MEDS: methylPREDNISolone SOD SUC 40 MG/1 ML VIAL IV SCH (01:42)
[2022-04-05 05:39] LABS: Basophils % 0.1 % (0.0-0.8); Hematocrit 31.1 VOL% (42.0-52.0); Hemoglobin 10.5 GM/DL (14.0-18.0); Immature Granulocytes % 0.7 %; Immature Granulocytes Absolute 0.06 #; Lymphocytes # 0.6 10*3/uL (1.4-4.0); Lymphocytes % 6.6 % (21.2-54.2); Mean Corpuscular HGB Conc 33.8 GM/DL (32-36); Mean Corpuscular Volume 94.8 FL (87-102); Mean Platelet Volume 10.2 FL (9.6-12.0); Monocytes # 0.1 10*3/uL (0.11-0.8); Monocytes % 1.2 % (1.7-12.7); Neutrophils % 91.4 % (38.7-73.9); Platelet Count 212 T/CUMM (130-400); Red Blood Count 3.28 MC/CUMM (3.8-5.5); Red Cell Distribution Width 13.7 % (9.3-17.3); White Blood Count 8.7 T/CUMM (4-12)
[2022-04-05 05:53] LABS: Calcium 9.2 MG/DL (8.5-10.1); Osmolality,Calculated 286.4 MOS/KG (273-304); Potassium 4.3 MMOL/L (3.5-5.1)
[2022-04-05 06:05] LABS: Lymphocytes 2 % (20-55); Total Cells Counted 100
[2022-04-05 06:06] LABS: Burr Cells Slight; Ovalocytes Slight; Platelet Estimate Adequate
[2022-04-05] MEDS: APIXABAN 2.5 MG TABLET PO SCH ×2 (10:07→22:43)
[2022-04-05] MEDS: DOCUSATE SODIUM 100 MG CAPSULE PO SCH ×2 (10:07→22:45)
[2022-04-05] MEDS: ASCORBIC ACID 500 MG TABLET PO SCH ×2 (10:07→22:43)
[2022-04-05] MEDS: PANTOPRAZOLE 40 MG TABLET PO SCH (10:08)
[2022-04-05] MEDS: TAMSULOSIN 0.4 MG CAPSULE PO SCH ×2 (10:08→22:43)
[2022-04-05] MEDS: CHOLECALCIFEROL 1,000 UNIT TABLET PO SCH (10:08)
[2022-04-05] MEDS: MEMANTINE 10 MG TABLET PO SCH ×2 (10:08→22:44)
[2022-04-05] MEDS: BENZONATATE 100 MG CAPSULE PO SCH ×3 (10:08→22:43)
[2022-04-05] MEDS: CALCIUM (CARBONATE)/VITAMIN D 600 MG-400 UNIT TABLET PO SCH (10:08)
[2022-04-05] MEDS: DILTIAZEM CD 180 MG CAPSULE PO SCH (10:10)
[2022-04-05] MEDS ORDERED: FUROSEMIDE 40 MG/4 ML VIAL IV ONE (10:39)
[2022-04-05] MEDS: GABAPENTIN 300 MG CAPSULE PO SCH (22:43)
[2022-04-05] MEDS: METOPROLOL SUCCINATE XL 100 MG TABLET PO SCH (22:44)
[2022-04-05] MEDS: CARBIDOPA/LEVODOPA 25-100 MG TABLET PO SCH (22:44)
[2022-04-06 04:27] LABS: Basophils % 0.1 % (0.0-0.8); Hematocrit 31.6 VOL% (42.0-52.0); Hemoglobin 10.5 GM/DL (14.0-18.0); Immature Granulocytes Absolute 0.14 #; Lymphocytes # 0.8 10*3/uL (1.4-4.0); Lymphocytes % 5.3 % (21.2-54.2); Mean Corpuscular HGB Conc 33.2 GM/DL (32-36); Mean Platelet Volume 10.1 FL (9.6-12.0); Monocytes # 0.7 10*3/uL (0.11-0.8); Monocytes % 4.6 % (1.7-12.7); Platelet Count 243 T/CUMM (130-400); Red Blood Count 3.29 MC/CUMM (3.8-5.5); Red Cell Distribution Width 14.1 % (9.3-17.3); White Blood Count 14.6 T/CUMM (4-12)
[2022-04-06 04:40] LABS: Calcium 9.5 MG/DL (8.5-10.1); Osmolality,Calculated 290.3 MOS/KG (273-304)
[2022-04-06 04:44] LABS: Albumin 2.5 G/DL (3.4-5.0); Bilirubin,Direct 0.17 MG/DL (0.0-0.20); Bilirubin,Indirect 0.2 MG/DL (0.0-1.0); Bilirubin,Total 0.4 MG/DL (0.20-1.00); Total Protein 6.7 G/DL (6.4-8.2)
[2022-04-06] MEDS: CALCIUM (CARBONATE)/VITAMIN D 600 MG-400 UNIT TABLET PO SCH (10:51)
[2022-04-06] MEDS: DOCUSATE SODIUM 100 MG CAPSULE PO SCH ×2 (10:51→21:04)
[2022-04-06] MEDS: MEMANTINE 10 MG TABLET PO SCH ×2 (10:52→21:01)
[2022-04-06] MEDS: BENZONATATE 100 MG CAPSULE PO SCH ×3 (10:52→21:02)
[2022-04-06] MEDS: PANTOPRAZOLE 40 MG TABLET PO SCH (10:52)
[2022-04-06] MEDS: APIXABAN 2.5 MG TABLET PO SCH ×2 (10:52→21:01)
[2022-04-06] MEDS: DILTIAZEM CD 180 MG CAPSULE PO SCH (10:52)
[2022-04-06] MEDS: TAMSULOSIN 0.4 MG CAPSULE PO SCH ×2 (10:52→21:01)
[2022-04-06] MEDS: CHOLECALCIFEROL 1,000 UNIT TABLET PO SCH (10:53)
[2022-04-06] MEDS: ASCORBIC ACID 500 MG TABLET PO SCH ×2 (10:53→21:02)
[2022-04-06] MEDS: CARBIDOPA/LEVODOPA 25-100 MG TABLET PO SCH (21:01)
[2022-04-06] MEDS: METOPROLOL SUCCINATE XL 100 MG TABLET PO SCH (21:02)
[2022-04-06] MEDS: GABAPENTIN 300 MG CAPSULE PO SCH (21:02)
[2022-04-07 05:17] LABS: Basophils % 0.4 % (0.0-0.8); Eosinophils # 0.1 10*3/uL (0.0-0.87); Eosinophils % 0.9 % (0.00-10.9); Hematocrit 31.1 VOL% (42.0-52.0); Hemoglobin 10.4 GM/DL (14.0-18.0); Immature Granulocytes % 1.1 %; Lymphocytes # 1.7 10*3/uL (1.4-4.0); Lymphocytes % 18.7 % (21.2-54.2); Mean Corpuscular HGB Conc 33.4 GM/DL (32-36); Mean Corpuscular Volume 95.7 FL (87-102); Mean Platelet Volume 10.1 FL (9.6-12.0); Monocytes # 0.8 10*3/uL (0.11-0.8); Monocytes % 8.4 % (1.7-12.7); Neutrophils % 70.5 % (38.7-73.9); Platelet Count 241 T/CUMM (130-400); Red Blood Count 3.25 MC/CUMM (3.8-5.5); Red Cell Distribution Width 14.4 % (9.3-17.3); White Blood Count 8.9 T/CUMM (4-12)
[2022-04-07 05:33] LABS: Calcium 9.2 MG/DL (8.5-10.1); Osmolality,Calculated 292.1 MOS/KG (273-304); Potassium 3.8 MMOL/L (3.5-5.1)
[2022-04-07] MEDS: CHOLECALCIFEROL 1,000 UNIT TABLET PO SCH (09:10)
[2022-04-07] MEDS: DOCUSATE SODIUM 100 MG CAPSULE PO SCH (09:10)
[2022-04-07] MEDS: DILTIAZEM CD 180 MG CAPSULE PO SCH (09:10)
[2022-04-07] MEDS: ASCORBIC ACID 500 MG TABLET PO SCH (09:10)
[2022-04-07] MEDS: APIXABAN 2.5 MG TABLET PO SCH (09:11)
[2022-04-07] MEDS: BENZONATATE 100 MG CAPSULE PO SCH ×2 (09:11→15:35)
[2022-04-07] MEDS: TAMSULOSIN 0.4 MG CAPSULE PO SCH (09:11)
[2022-04-07] MEDS: PANTOPRAZOLE 40 MG TABLET PO SCH (09:11)
[2022-04-07] MEDS: MEMANTINE 10 MG TABLET PO SCH (09:11)
[2022-04-07] MEDS: CALCIUM (CARBONATE)/VITAMIN D 600 MG-400 UNIT TABLET PO SCH (09:11)
[2022-04-07 16:27] VITALS: BP 109/55
== END 2022-04-07 17:21 | disposition home health service (06) | DRG 193 ==
LOC: EDBD → EDUNIT# → N.ED 12:19 → N.TELEN 16:17
PROVIDERS: ADMIT Internal Medicine; ATTEND Internal Medicine